=== PATIENT | female | born 1940 | race Caucasian/White ===

== ENCOUNTER 2016-11-26 01:48 | Observation (INO) | payer MEDICARE ==
[~2016-11-26] VITALS: Ht 157.5 cm; Wt 73.5 kg
[~2016-11-26 01:48] MED LIST: ALBU2.5V4 IH; AZIT-21 PO; DESV50TA PO; DOXY-182 PO; FLUO40CA PO; FLUT12AE4 IH; FLX20C; HCT25T PO; HDR10T; HDR10T PO; PNT40TEC PO; PRCD5U PO; PRD20T PO; PROZAC PO; SCR1T1 PO; TMZP15C GT; [UNRECOGNIZED DRUG - OTHER]
[2016-11-26] MEDS ORDERED: RT-ALBUTEROL/IPRATROPIUM 3 ML (DUONEB) VIAL ONE (01:52)
[2016-11-26] MEDS ORDERED: RALO60TA12 (01:58)
[2016-11-26] MEDS ORDERED: NS IV 1000 ML 1,000 ML IV ONE (02:00)
[2016-11-26] MEDS ORDERED: RT-ALBUTEROL/IPRATROPIUM 3 ML (DUONEB) VIAL INH ONE (02:00)
[2016-11-26] MEDS ORDERED: methylPREDNISolone 125 MG (Solu-MEDROL) VIAL IVP ONE (02:00)
--- NOTE | 2016-11-26 02:00 | ED Respiratory ---
General Chief Complaint: Respiratory Problems Stated Complaint: SOB Nursing Triage Note: patient reports coughing x 5 days with SOA Source: patient Exam Limitations: no limitations History of Present Illness Time seen by provider: 01:59 Initial Comments Patient presents to ER by private conveyance with her with a chief complaint 4 days progressively worsening shortness of breath chills but no subjective fever. She is sweaty and has been exposed to her son who has had strep throat several times in the last few months. She has a sore throat no nausea or chest pain. She says she was told the past she has COPD but she's not convinced she does however she does use a nebulized albuterol at home but has not used it in several weeks. She has had regular bowel movements no diarrhea and no rash. She has no history of coronary disease. Allergies and Home Medications Allergies Coded Allergies: Penicillins (Verified Allergy, Unknown, 05/18/07) Home Medications Fluoxetine Hcl 40 Mg Capsule, 1 EACH PO DAILY, (Reported) Hydrochlorothiazide 25 Mg Tablet, 25 MG PO DAILY, (Reported) Raloxifene HCl 60 Mg Tablet, #30 (Reported) Constitutional: see HPI, chills, diaphoresis, No fever, malaise EENTM: hoarseness, throat pain, No ear discharge, No ear pain, No eye pain, No throat swelling, No vision loss Respiratory: cough (nonproductive), No hemoptysis (nonproductive), No short of breath Cardiovascular: No chest pain, No Hx of Intervention, No palpitations, No vascular heart diseas Gastrointestinal: No abdominal pain, No constipation, No diarrhea, No nausea Genitourinary: No discharge, No dysuria : No Musculoskeletal: No back pain, No joint pain Skin: No pruritus, No rash Psychiatric/Neurological: Denies Headache, Denies Numbness Past Cjvpffw-Kkmlse-Rmyxwe Hx Patient Social History Alcohol Use: Denies Use Recreational Drug Use: No Smoking Status: Former Smoker Type Used: Cigarettes Recent Foreign Travel: No Contact w/Someone Who Travel: No Recent Infectious Disease Expo: No Recent Hopitalizations: No Immunizations Up To Date Date of Pneumonia Vaccine: Jan 01, 2011 Date of Influenza Vaccine: Feb 23, 2012 Surgeries HX Surgeries: Yes (Macula repair 2009, HIATAL HERNIA) Respiratory Hx Respiratory Disorders: No Cardiovascular Hx Cardiac Disorders: No Neurological Hx Neurological Disorders: No Reproductive System Hx Reproductive Disorders: No Sexually Transmitted Disease: No Genitourinary Hx Genitourinary Disorders: No Gastrointestinal Hx Gastrointestinal Disorders: Yes (HAS FREQ HEART BURN) Musculoskeletal Hx Musculoskeletal Disorders: No Endocrine Hx Endocrine Disorders: No HEENT HX ENT Disorders: No Integumentary HX Skin/Integumentary Disorder: Yes (TICK FEVER) Blood Transfusions Hx Blood Disorders: No Family Medical History Significant Family History: No Pertinent Family Hx Physical Exam Vital Signs Vital Sign - Last 12Hours 11/26/16 11/26/16 01:53 02:01 Temp 98.3 Pulse 87 Resp 22 B/P (MAP) 158/87 Pulse Ox 96 O2 Delivery Room Air O2 Flow Rate 2.00 Capillary Refill : Less Than 3 Seconds General Appearance: WD/WN, mild distress Eyes: Bilateral Eye EOMI, Bilateral Eye Normal Inspection, Bilateral Eye PERRL HEENT: PERRL/EOMI, normal ENT inspection, TMs normal, pharyngeal erythema Neck: non-tender, full range of motion, supple, normal inspection Respiratory: chest non-tender, no respiratory distress, decreased breath sounds , other (nonproductive cough) Cardiovascular: normal peripheral pulses, regular rate, rhythm, no edema, no murmur Gastrointestinal: normal bowel sounds, non tender, soft Extremities: normal range of motion, normal capillary refill Neurologic/Psychiatric: alert, oriented x 3 (I, satisfactory range) Skin: normal color, warm/dry Focused Exam Lactic Acid Level Laboratory Tests Test 11/26/16 02:00 Lactic Acid Level 1.26 MMOL/L (0.50-2.00) Progress/Results/Core Measures Results/Orders Lab Results Laboratory Tests Test 11/26/16 01:55 11/26/16 02:00 11/26/16 02:07 Range/Units White Blood Count 11.3 H 4.3-11.0 10^3/uL Red Blood Count 4.81 4.35-5.85 10^6/uL Hemoglobin 13.4 11.5-16.0 G/DL Hematocrit 40 35-52 % Mean Corpuscular Volume 83 80-99 FL Mean Corpuscular Hemoglobin 28 25-34 PG Mean Corpuscular Hemoglobin Concent 34 32-36 G/DL Red Cell Distribution Width 16.0 H 10.0-14.5 % Platelet Count 256 130-400 10^3/uL Mean Platelet Volume 10.8 H 7.4-10.4 FL Neutrophils (%) (Auto) 63 42-75 % Lymphocytes (%) (Auto) 24 12-44 % Monocytes (%) (Auto) 12 0-12 % Eosinophils (%) (Auto) 1 0-10 % Basophils (%) (Auto) 0 0-10 % Neutrophils # (Auto) 7.1 1.8-7.8 X 10^3 Lymphocytes # (Auto) 2.7 1.0-4.0 X 10^3 Monocytes # (Auto) 1.3 H 0.0-1.0 X 10^3 Eosinophils # (Auto) 0.1 0.0-0.3 10^3/uL Basophils # (Auto) 0.0 0.0-0.1 10^3/uL Prothrombin Time 14.0 12.2-14.7 SEC INR Comment 1.1 0.8-1.4 Activated Partial Thromboplast Time 28 24-35 SEC D-Dimer 1.50 H 0.00-0.49 UG/ML Sodium Level 139 135-145 MMOL/L Potassium Level 3.4 L 3.6-5.0 MMOL/L Chloride Level 103 98-107 MMOL/L Carbon Dioxide Level 22 21-32 MMOL/L Anion Gap 14 5-14 MMOL/L Blood Urea Nitrogen 32 H 7-18 MG/DL Creatinine 1.20 0.60-1.30 MG/DL Estimat Glomerular Filtration Rate 44 BUN/Creatinine Ratio 27 Glucose Level 135 H 70-105 MG/DL Calcium Level 9.6 8.5-10.1 MG/DL Magnesium Level 1.9 1.8-2.4 MG/DL Total Bilirubin 0.5 0.1-1.0 MG/DL Aspartate Amino Transf (AST/SGOT) 50 H 5-34 U/L Alanine Aminotransferase (ALT/SGPT) 53 0-55 U/L Alkaline Phosphatase 122 40-136 U/L Troponin I < 0.30 <0.30 NG/ML B-Type Natriuretic Peptide 45.1 <100.0 PG/ML Total Protein 6.8 6.4-8.2 GM/DL Albumin 4.0 3.2-4.5 GM/DL Lactic Acid Level 1.26 0.50-2.00 MMOL/L Group A Streptococcus Screen NEGATIVE NEGATIVE My Orders Orders - BRENDA MONSON Albuterol/Ipra Inhalation Soln (Duoneb I (11/26/16 01:52) Cbc With Automated Diff (11/26/16 02:00) Comprehensive Metabolic Panel (11/26/16 02:00) Lactic Acid Analyzer (11/26/16 02:00) Magnesium (11/26/16 02:00) Rapid Strep A Screen (11/26/16 02:00) Troponin I (11/26/16 02:00) Chest Pa/Lat (2 View) (11/26/16 02:00) Albuterol/Ipra Inhalation Soln (Duoneb I (11/26/16 02:00) Saline Lock/Iv-Start (11/26/16 02:00) Ns Iv 1000 Ml (Sodium Chloride 0.9%) (11/26/16 02:00) BNP (11/26/16 02:00) Fibrin Degradation Products (11/26/16 02:00) Ekg Tracing (11/26/16 02:00) O2 (11/26/16 02:00) Saline Lock/Iv-Start (11/26/16 02:00) Sputum Culture (11/26/16 02:00) Monitor-Rhythm Ecg Trace Only (11/26/16 02:00) Svn Sm Volume Nebulizer Rt-Rfs (11/26/16 02:00) Methylprednisolone Sod Succ (Solu-Medrol (11/26/16 02:00) Potassium Chloride (Tablet) (K Dur Table (11/26/16 03:15) Albuterol Pre-Mix Nebs (Rt) (Proventil P (11/26/16 03:12) Albuterol Pre-Mix Nebs (Rt) (Proventil P (11/26/16 03:30) Azithromycin Tablet (Zithromax Tablet) (11/26/16 03:45) Heparin Drip [id number] Unit/500ml (Heparin (11/26/16 03:31) Heparin (Bolus Per Protocol) (Heparin (B (11/26/16 03:45) Protime With Inr (11/26/16 03:31) Partial Thromboplastin Time (11/26/16 03:31) Medications Given in ED Current Medications Medications Dose Ordered Sig/Tootie Route Start Time Stop Time Status Last Admin Dose Admin Albuterol Sulfate 2.5 mg STK-MED ONCE .ROUTE 11/26/16 03:12 11/26/16 03:18 DC 11/26/16 03:20 2.5 MG Albuterol/ Ipratropium 3 ml ONCE ONCE INH 11/26/16 02:00 11/26/16 02:05 DC 11/26/16 02:10 3 ML Heparin Sodium/ Dextrose 500 ml @ 0 mls/hr Q0M ONCE IV 11/26/16 03:31 11/26/16 03:34 DC 11/26/16 03:42 25.9 MLS/HR Methylprednisolone Sodium Succinate 125 mg ONCE ONCE IVP 11/26/16 02:00 11/26/16 02:05 DC 11/26/16 02:23 125 MG Potassium Chloride 20 meq ONCE ONCE PO 11/26/16 03:15 11/26/16 03:16 DC 11/26/16 03:42 20 MEQ Sodium Chloride 1,000 ml @ 0 mls/hr Q0M ONCE IV 11/26/16 02:00 11/26/16 02:05 DC 11/26/16 02:23 0 MLS/HR Vital Signs/I&O Vital Sign - Last 12Hours 11/26/16 11/26/16 11/26/16 11/26/16 01:53 01:53 02:01 03:21 Temp 98.3 Pulse 87 Resp 22 B/P (MAP) 158/87 Pulse Ox 96 96 99 97 O2 Delivery Room Air Nasal Cannula Nasal Cannula O2 Flow Rate 2.00 2.00 Blood Pressure Mean: 110 Progress Note #1: Time: 02:12 Progress Note COPD exacerbation versus pneumonia. Breath sounds are better appreciated after a breathing treatment. Progress Note #2: Time: 03:14 Progress Note Patient is having quite a bit of coughing and her sats are getting into the upper 80s. Put her on O2 2 L and we'll go ahead and plan on putting her in the hospital. Even though she is on a blood thinner presently her d-dimer is elevated and she doesn't have any recent surgeries or trauma that would explain it. Given her GFR 44 at the good be reasonable to get a VQ scan as opposed to a CT angiogram. We'll go ahead and switch her to heparin drip. ECG Initial ECG Impression Date: Nov 26, 2016 Initial ECG Impression Time: 01:59 Initial ECG Rate: 81 Initial ECG Rhythm: Normal Sinus Initial ECG Intervals: Normal Initial ECG Impression: Normal Initial ECG Comparisson: No Previous ECG Available Comment No appreciable ST wave elevation or depression. Diagnostic Imaging Diagonstic Imaging: Xray Plain Films/CT/US/NM/MRI: chest Comments Stable widened mediastinum seen in 2013. No new acute infiltrates or other cardiopulmonary processes noted. Reviewed: Reviewed by Me Departure Communication Time/Spoke to Admitting Phy: 03:[address] Ayers the patient's lab findings, clinical presentation and my desire to have her placed in observation for COPD, mild hypoxia, possible PE and a VQ scan in the morning given her chronic kidney disease and her GFR 40s. She agrees and will see the patient in the morning. Impression Impression: Primary Impression: COPD exacerbation Additional Impressions: Hypoxia Pulmonary embolism Qualified Codes: I26.99 - Other pulmonary embolism without acute cor pulmonale Disposition: ADMITTED INPATIENT (observation) Condition: Stable Decision to Admit Reason: Admit from ER (General) Decision to Admit/Date: Nov 26, 2016 Time/Decision to Admit Time: 03:29 Departure-Patient Inst. Referrals: SOLA AYERS DO (PCP/Family) Primary Care Physician Copy Copies To 1: SOLA AYERS TITUS J Nov 26, 2016 02:00
[2016-11-26 02:09] LABS: BASOPHILS % (AUTO) 0 % (0-10); EOSINOPHILS # (AUTO) 0.1 10^3/uL (0.0-0.3); EOSINOPHILS % (AUTO) 1 % (0-10); LYMPHOCYTES # (AUTO) 2.7 X 10^3 (1.0-4.0); LYMPHOCYTES % (AUTO) 24 % (12-44); MEAN CORPUSCULAR HEMOGLOBIN 28 PG (25-34); MEAN CORPUSCULAR HGB CONC 34 G/DL (32-36); MEAN CORPUSCULAR VOLUME 83 FL (80-99); MEAN PLATELET VOLUME 10.8 FL (7.4-10.4); MONOCYTES # (AUTO) 1.3 X 10^3 (0.0-1.0); MONOCYTES % (AUTO) 12 % (0-12); NEUTROPHILS # (AUTO) 7.1 X 10^3 (1.8-7.8); NEUTROPHILS % (AUTO) 63 % (42-75); PLATELET COUNT 256 10^3/uL (130-400); RED BLOOD COUNT 4.81 10^6/uL (4.35-5.85); WHITE BLOOD COUNT 11.3 10^3/uL (4.3-11.0)
[2016-11-26 02:34] LABS: ALANINE AMINOTRANSFERASE 53 U/L (0-55); ANION GAP 14 MMOL/L (5-14); ASPARTATE AMINO TRANSFERASE 50 U/L (5-34); BILIRUBIN,TOTAL 0.5 MG/DL (0.1-1.0); BLOOD UREA NITROGEN 32 MG/DL (7-18); BUN/CREATININE RATIO 27; CALCIUM 9.6 MG/DL (8.5-10.1); CARBON DIOXIDE 22 MMOL/L (21-32); CHLORIDE 103 MMOL/L (98-107); GFR ESTIMATED 44; GLUCOSE 135 MG/DL (70-105); MAGNESIUM 1.9 MG/DL (1.8-2.4); POTASSIUM 3.4 MMOL/L (3.6-5.0); SODIUM 139 MMOL/L (135-145); TOTAL PROTEIN 6.8 GM/DL (6.4-8.2)
[2016-11-26 02:40] LABS: TROPONIN I < 0.30 NG/ML (<0.30)
[2016-11-26] MEDS ORDERED: RT-ALBUTEROL SULF 2.5 MG/3 ML PRE-MIX VIAL ONE (03:12)
[2016-11-26] MEDS ORDERED: KCL 20 MEQ TAB (K-DUR) PO ONE (03:15)
[2016-11-26] MEDS ORDERED: RT-ALBUTEROL SULF 2.5 MG/3 ML PRE-MIX VIAL IH SCH ×2 (03:30→10:00)
[2016-11-26] MEDS ORDERED: HEParin DRIP 25000 UNIT/500ML 500 ML IV ONE (03:31)
[2016-11-26 03:42] LABS: INR 1.1 (0.8-1.4)
[2016-11-26] MEDS ORDERED: AZITHROMYCIN 250 MG TAB (ZITHROMAX) PO ONE (03:45)
[2016-11-26] MEDS ORDERED: HEParin 1000 UNIT/ML (10ML VIAL) FOR BOLUS IV ONE (03:45)
[2016-11-26 04:46] VITALS: BP 133/75
[2016-11-26 05:33] LABS: BASOPHILS % (AUTO) 0 % (0-10); EOSINOPHILS % (AUTO) 0 % (0-10); LYMPHOCYTES # (AUTO) 0.9 X 10^3 (1.0-4.0); LYMPHOCYTES % (AUTO) 9 % (12-44); MEAN CORPUSCULAR HEMOGLOBIN 28 PG (25-34); MEAN CORPUSCULAR HGB CONC 34 G/DL (32-36); MEAN CORPUSCULAR VOLUME 84 FL (80-99); MEAN PLATELET VOLUME 10.7 FL (7.4-10.4); MONOCYTES # (AUTO) 0.2 X 10^3 (0.0-1.0); MONOCYTES % (AUTO) 2 % (0-12); NEUTROPHILS # (AUTO) 9.1 X 10^3 (1.8-7.8); NEUTROPHILS % (AUTO) 89 % (42-75); PLATELET COUNT 203 10^3/uL (130-400); RED BLOOD COUNT 4.54 10^6/uL (4.35-5.85); RED CELL DISTRIBUTION WIDTH 15.9 % (10.0-14.5); WHITE BLOOD COUNT 10.2 10^3/uL (4.3-11.0)
[2016-11-26 06:00] LABS: ANISOCYTOSIS SLIGHT; BAND NEUTROPHILS 0 %; BASOPHILS % (MANUAL) 0 %; EOSINOPHILS % (MANUAL) 0 %; LYMPHOCYTES % (MANUAL) 6 %; NEUTROPHILS % (MANUAL) 92 %
[2016-11-26 06:26] LABS: ALBUMIN 3.7 GM/DL (3.2-4.5); BILIRUBIN,TOTAL 0.5 MG/DL (0.1-1.0); CALCIUM 9.2 MG/DL (8.5-10.1); CREATININE SERUM 1.03 MG/DL (0.60-1.30); POTASSIUM 3.1 MMOL/L (3.6-5.0); TOTAL PROTEIN 6.3 GM/DL (6.4-8.2)
[2016-11-26] MEDS ORDERED: HEParin DRIP 25000 UNIT/500ML 500 ML IV SCH (06:34)
[2016-11-26] MEDS ORDERED: HEParin 1000 UNIT/ML (10ML VIAL) FOR BOLUS IV SCH (06:45)
[2016-11-26] MEDS ORDERED: fentaNYL INJECTION 100 MCG/2 ML AMP IV PRN (06:45)
[2016-11-26] MEDS ORDERED: ONDANSETRON 4 MG/2 ML (SDV) Z0FRAN IV PRN (06:45)
[2016-11-26] MEDS ORDERED: NS IV 1000 ML 1,000 ML IV SCH (06:45)
[2016-11-26] MEDS ORDERED: CATHETER FLUSH 10 ML SYR IV PRN (06:45)
--- NOTE | 2016-11-26 07:26 | Diagnostic Imaging Report ---
INDICATION: Cough and congestion. COMPARISON: 07/16/2012. FINDINGS: Frontal and lateral views of the chest demonstrate stable cardiac enlargement. The lungs are otherwise clear. There is no pneumothorax, effusion or infiltrate. Osseous structures are stable. IMPRESSION: Cardiac enlargement without pulmonary edema or infiltrate. Dictated by: Dictated on workstation # [id number]
--- NOTE | 2016-11-26 07:48 | Diagnostic Imaging Report ---
INDICATION: Pulmonary embolism. COMPARISON: None. TECHNIQUE: Radiopharmaceutical 40.1 mCi technetium DTPA nebulizer. 5.3 mCi technetium 99m MAA IV. FINDINGS: Ventilation and perfusion images were obtained. There is no perfusion defect that would indicate pulmonary embolism. Ventilation phase is grossly normal. IMPRESSION: Negative lung scan. No pulmonary embolism identified. Dictated by: Dictated on workstation # [id number]
[2016-11-26 08:00] VITALS: BP 123/71
[2016-11-26 08:36] VITALS: BP 133/75
[2016-11-26 12:00] VITALS: BP 148/89
[2016-11-26] MEDS ORDERED: ALBU2.5V4 IH (12:30)
[2016-11-26] MEDS ORDERED: PRD20T PO (12:32)
[2016-11-26] MEDS ORDERED: AZIT250T PO (12:32)
[2016-11-26] MEDS ORDERED: POTA10CA43 PO (12:35)
--- NOTE | 2016-11-26 12:37 | Discharge Inst-Simple/Standard ---
Discharge Inst-Standard Discharge Medications New, Converted or Re-Newed RX: Transmitted to Pharmacy Patient Instructions/Follow Up Plan of Care/Instructions/FU: Fwup in 1 week Activity as Tolerated: Yes Discharge Diet: Low Sodium Diet SOLA MICHELLE DO Nov 26, 2016 12:37
[2016-11-26 13:00] VITALS: BP 122/78
--- NOTE | 2016-11-26 13:06 | Short Stay Summary ---
History of Present Illness History of Present Illness Reason for visit/HPI This is a 75 year old female with a known history of COPD who presented to the emergency room with a 4 days history of cough, wheezing and worsening shortness of air. She was having coughing episodes in the emergency room which would drop her oxygen saturation level into the 80s so she had to be placed on oxygen , given nebulizer treatments and IV solumedrol. Following these treatments, she felt much better but she was found to have an elevated D-Dimer so it was decided to admit her for observation and treatment as well as for V/Q scan. Date of Admission Nov 26, 2016 at 3:40 am Date of Discharge November 26, 2016 Time Seen by Provider: 13:01 Attending Physician Luciana Ayers DO Admitting Physician Luciana Ayers DO Consult Allergies and Home Medications Allergies Coded Allergies: Penicillins (Verified Allergy, Unknown, 05/18/07) Home Medications Albuterol Sulfate 2.5 Mg/3 Ml Vial.neb, 2.5 MG IH RTQ4HR, #50 Prescribed by: LUCIANA AYERS on 11/26/16 1230 Azithromycin 250 Mg Tablet, 250 MG PO UD for 4 Days, #6 TAKE 2 TABLETS TODAY, THEN TAKE 1 TABLET DAILY FOR 4 MORE DAYS Prescribed by: LUCIANA AYERS on 11/26/16 1232 Fluoxetine Hcl 40 Mg Capsule, 1 EACH PO DAILY, (Reported) Potassium Chloride 10 Meq Capsule.er, 10 MEQ PO BID, #60 Prescribed by: LUCIANA AYERS on 11/26/16 1235 Prednisone 20 Mg Tab, 20 MG PO DAILY for 5 Days, #5 Prescribed by: LUCIANA AYERS on 11/26/16 1232 Raloxifene HCl 60 Mg Tablet, #30 (Reported) Past Rybnmca-Ippvxx-Cippqs Hx Patient Social History Marrital Status: Employed/Student: employed Alcohol Use: Occasionally Uses Recreational Drug Use: No Smoking Status: Former Smoker Type Used: Cigarettes Physical Abuse Screen: No Sexual Abuse: No Recent Foreign Travel: No Contact w/other who traveled: No Recent Hopitalizations: No Recent Infectious Disease Expo: No Immunizations Up To Date Date of Pneumonia Vaccine: Jan 01, 2011 Date of Influenza Vaccine: Feb 23, 2012 Seasonal Allergies Seasonal Allergies: No Surgeries HX Surgeries: Yes (Macula repair 2010, HIATAL HERNIA) Respiratory Hx Respiratory Disorders: No Cardiovascular Hx Cardiovascular Disorders: No Neurological Hx Neurological Disorders: No Reproductive System Hx Reproductive Disorders: No Sexually Transmitted Disease: No HIV/AIDS: No Genitourinary Hx Genitourinary Disorders: No Gastrointestinal Hx Gastrointestinal Disorders: Yes (HAS FREQ HEART BURN) Musculoskeletal Hx Musculoskeletal Disorders: No Endocrine Hx Endocrine Disorders: No HEENT HX ENT Disorders: No Psychosocial Behavioral Health Disorders: Anxiety Integumentary HX Skin/Integumentary Disorder: Yes (TICK FEVER) Blood Transfusions Hx Blood Disorders: No Adverse Reaction to a Blood Tr: No Family Medical History Significant Family History: No Pertinent Family Hx Constitutional: weakness EENTM: nose congestion, throat pain Respiratory: cough, short of breath, wheezing Cardiovascular: No no symptoms reported, No see HPI, No chest pain, No edema, No Hx of Intervention, No palpitations, No syncope, No vascular heart diseas, No other Gastrointestinal: No RUQ, No LUQ, No RLQ, No LLQ, No no symptoms reported, No see HPI, No abdominal pain, No constipation, No diarrhea, No dysphagia, No hematemesis, No heartburn, No jaundice, No loss of appetite, No melena, No nausea, No vomiting, No other Genitourinary: No no symptoms reported, No see HPI, No decreased output, No discharge, No dysuria, No frequency, No hematuria, No hesitancy, No incontinence , No nocturia, No pain, No other Musculoskeletal: No no symptoms reported, No see HPI, No back pain, No gout, No joint pain, No joint swelling, No muscle pain, No muscle stiffness, No muscle cramps, No muscle twitching, No muscle weakness, No neck pain, No other Skin: No no symptoms reported, No see HPI, No change in color, No change in hair/nails, No dryness, No hx of skin cancer, No lesions, No lumps, No pruritus , No rash, No other Psychiatric/Neurological: Anxiety Physical Exam Vital Signs Vital Sign - Last 12Hours 11/26/16 11/26/16 11/26/16 01:53 02:01 08:36 Temp 98.3 Pulse 87 Resp 22 B/P (MAP) 158/87 Pulse Ox 96 O2 Delivery Room Air O2 Flow Rate 2.00 FiO2 21 Capillary Refill : Less Than 3 Seconds General Appearance: No Apparent Distress HEENT: Normal ENT Inspection Neck: Supple Respiratory: Lungs Clear Cardiovascular: Regular Rate, Rhythm Gastrointestinal: Non Tender, Soft, Abnormal Bowel Sounds Rectal: Deferred Back: No CVA Tenderness Extremity: Non Tender, No Calf Tenderness, No Pedal Edema Neurologic/Psychiatric: Alert, Oriented x3 Skin: Normal Color, Warm/Dry Lymphatic: No Adenopathy Comments Laboratory Tests 11/26/16 01:55: White Blood Count 11.3H, Red Blood Count 4.81, Hemoglobin 13.4, Hematocrit 40, Mean Corpuscular Volume 83, Mean Corpuscular Hemoglobin 28, Mean Corpuscular Hemoglobin Concent 34, Red Cell Distribution Width 16.0H, Platelet Count 256, Mean Platelet Volume 10.8H, Neutrophils (%) (Auto) 63, Lymphocytes (%) (Auto) 24 , Monocytes (%) (Auto) 12, Eosinophils (%) (Auto) 1, Basophils (%) (Auto) 0, Neutrophils # (Auto) 7.1, Lymphocytes # (Auto) 2.7, Monocytes # (Auto) 1.3H, Eosinophils # (Auto) 0.1, Basophils # (Auto) 0.0, Prothrombin Time 14.0, INR Comment 1.1, Activated Partial Thromboplast Time 28, D-Dimer 1.50H, Sodium Level 139, Potassium Level 3.4L, Chloride Level 103, Carbon Dioxide Level 22, Anion Gap 14, Blood Urea Nitrogen 32H, Creatinine 1.20, Estimat Glomerular Filtration Rate 44, BUN/Creatinine Ratio 27, Glucose Level 135H, Calcium Level 9.6, Magnesium Level 1.9, Total Bilirubin 0.5, Aspartate Amino Transf (AST/SGOT ) 50H, Alanine Aminotransferase (ALT/SGPT) 53, Alkaline Phosphatase 122, Troponin I < 0.30, B-Type Natriuretic Peptide 45.1, Total Protein 6.8, Albumin 4.0 11/26/16 02:00: Lactic Acid Level 1.26 11/26/16 02:07: Group A Streptococcus Screen NEGATIVE 11/26/16 05:20: White Blood Count 10.2, Red Blood Count 4.54, Hemoglobin 12.7, Hematocrit 38, Mean Corpuscular Volume 84, Mean Corpuscular Hemoglobin 28, Mean Corpuscular Hemoglobin Concent 34, Red Cell Distribution Width 15.9H, Platelet Count 203, Mean Platelet Volume 10.7H, Neutrophils (%) (Auto) 89H, Lymphocytes (%) (Auto) 9L, Monocytes (%) (Auto) 2, Eosinophils (%) (Auto) 0, Basophils (%) (Auto) 0, Neutrophils # (Auto) 9.1H, Lymphocytes # (Auto) 0.9L, Monocytes # (Auto) 0.2, Eosinophils # (Auto) 0.0, Basophils # (Auto) 0.0, Sodium Level 139, Potassium Level 3.1L, Chloride Level 105, Carbon Dioxide Level 20L, Anion Gap 14, Blood Urea Nitrogen 29H, Creatinine 1.03, Estimat Glomerular Filtration Rate 52, BUN/ Creatinine Ratio 28, Glucose Level 174H, Calcium Level 9.2, Total Bilirubin 0.5 , Aspartate Amino Transf (AST/SGOT) 50H, Alanine Aminotransferase (ALT/SGPT) 50 , Alkaline Phosphatase 104, Total Protein 6.3L, Albumin 3.7, Neutrophils % ( Manual) 92, Lymphocytes % (Manual) 6, Monocytes % (Manual) 2, Eosinophils % ( Manual) 0, Basophils % (Manual) 0, Band Neutrophils 0, Anisocytosis SLIGHT 11/26/16 07:35: Activated Partial Thromboplast Time > 200*H Clinical Quality Measures DVT/VTE Risk/Contraindication: VTE Present on Admission: Yes Risk Factor Score Per Nursin RFS Level Per Nursing on Admit: 4+=Very High Short Stay Diagnosis Discharge Diagnosis-Short Stay Admission Diagnosis: 1. COPD Exacerbation 2. Hypoxia due to Coughing 3. Elevated D-Dimer 4. Hypokalemia 5. Anxiety Final Discharge Diagnosis: 1. COPD Exacerbation--improving 2. Hypoxia--Resolved 3. Elevated D-Dimer--no PE, V/Q scan negative 4. Hypokalemia 5. Anxiety Conclusion Labs Laboratory Tests 11/26/16 01:55: White Blood Count 11.3H, Red Blood Count 4.81, Hemoglobin 13.4, Hematocrit 40, Mean Corpuscular Volume 83, Mean Corpuscular Hemoglobin 28, Mean Corpuscular Hemoglobin Concent 34, Red Cell Distribution Width 16.0H, Platelet Count 256, Mean Platelet Volume 10.8H, Neutrophils (%) (Auto) 63, Lymphocytes (%) (Auto) 24 , Monocytes (%) (Auto) 12, Eosinophils (%) (Auto) 1, Basophils (%) (Auto) 0, Neutrophils # (Auto) 7.1, Lymphocytes # (Auto) 2.7, Monocytes # (Auto) 1.3H, Eosinophils # (Auto) 0.1, Basophils # (Auto) 0.0, Prothrombin Time 14.0, INR Comment 1.1, Activated Partial Thromboplast Time 28, D-Dimer 1.50H, Sodium Level 139, Potassium Level 3.4L, Chloride Level 103, Carbon Dioxide Level 22, Anion Gap 14, Blood Urea Nitrogen 32H, Creatinine 1.20, Estimat Glomerular Filtration Rate 44, BUN/Creatinine Ratio 27, Glucose Level 135H, Calcium Level 9.6, Magnesium Level 1.9, Total Bilirubin 0.5, Aspartate Amino Transf (AST/SGOT ) 50H, Alanine Aminotransferase (ALT/SGPT) 53, Alkaline Phosphatase 122, Troponin I < 0.30, B-Type Natriuretic Peptide 45.1, Total Protein 6.8, Albumin 4.0 11/26/16 02:00: Lactic Acid Level 1.26 11/26/16 02:07: Group A Streptococcus Screen NEGATIVE 11/26/16 05:20: White Blood Count 10.2, Red Blood Count 4.54, Hemoglobin 12.7, Hematocrit 38, Mean Corpuscular Volume 84, Mean Corpuscular Hemoglobin 28, Mean Corpuscular Hemoglobin Concent 34, Red Cell Distribution Width 15.9H, Platelet Count 203, Mean Platelet Volume 10.7H, Neutrophils (%) (Auto) 89H, Lymphocytes (%) (Auto) 9L, Monocytes (%) (Auto) 2, Eosinophils (%) (Auto) 0, Basophils (%) (Auto) 0, Neutrophils # (Auto) 9.1H, Lymphocytes # (Auto) 0.9L, Monocytes # (Auto) 0.2, Eosinophils # (Auto) 0.0, Basophils # (Auto) 0.0, Sodium Level 139, Potassium Level 3.1L, Chloride Level 105, Carbon Dioxide Level 20L, Anion Gap 14, Blood Urea Nitrogen 29H, Creatinine 1.03, Estimat Glomerular Filtration Rate 52, BUN/ Creatinine Ratio 28, Glucose Level 174H, Calcium Level 9.2, Total Bilirubin 0.5 , Aspartate Amino Transf (AST/SGOT) 50H, Alanine Aminotransferase (ALT/SGPT) 50 , Alkaline Phosphatase 104, Total Protein 6.3L, Albumin 3.7, Neutrophils % ( Manual) 92, Lymphocytes % (Manual) 6, Monocytes % (Manual) 2, Eosinophils % ( Manual) 0, Basophils % (Manual) 0, Band Neutrophils 0, Anisocytosis SLIGHT 11/26/16 07:35: Activated Partial Thromboplast Time > 200*H Conclusion/Plan This is a 75 year old female with a known history of COPD who presented to the emergency room with a 4 day history of cough, wheezing and worsening shortness of air. She was having coughing episodes in the emergency room which would drop her oxygen saturation level into the 80s so she had to be placed on oxygen , given nebulizer treatments and IV solumedrol. Following these treatments, she felt much better but she was found to have an elevated D-Dimer so it was decided to admit her for observation and treatment as well as for V/Q scan. She was admitted to the medical floor and continued on SVNs with albuterol. She was also given zithromax in the emergency room and started on a heparin drip. By the following morning, she was off of oxygen, had no further wheezing and was pacing in her room and the hallways wanting to go home. Her V/Q scan was negative for a PE. On exam, she had good lung aeration with no wheezing. She was afebrile. She was given oral potassium replacement but her potassium level was still low on her morning lab. However, she did not want to wait around for more potassium to be dispensed from the inpatient pharmacy so potassium was sent out to her outpatient pharmacy and she agreed to pick it up on discharge and start it immediately. She will be discharged home on nebulizer treatments with albuterol, zithromax, prednisone and potassium. She is instructed on rest with no working for the rest of the weekend. She will follow up in my office next week and will have her potassium level repeated at that time. LUCIANA AYERS DO Nov 26, 2016 1:05 pm
[2016-11-26] MEDS ORDERED: CATHETER FLUSH 10 ML SYR IV SCH (14:00)
== END 2016-11-26 12:27 | disposition home or self-care (01) ==
LOC: EDUNIT# 01:48 → ER 01:50 → 4TH 03:40 → UNDOADMOB 03:40 → 4TH 04:30 → UNDODISOB 13:00
PROVIDERS: ADMIT Family Medicine; ATTEND Family Medicine
DX: J44.1 Chronic obstructive pulmonary disease with (acute) exacerbation (principal); E87.6 Hypokalemia; R79.1 Abnormal coagulation profile; I51.7 Cardiomegaly; I25.10 Atherosclerotic heart disease of native coronary artery without angina pectoris; F41.9 Anxiety disorder, unspecified; Z79.899 Other long term (current) drug therapy; Z87.891 Personal history of nicotine dependence
CPT/HCPCS: 36415; 71020; 78582; 80053; 83605; 83735; 83880; 84484; 85007; 85025; 85027; 85379; 85610; 85730; 87430; 93005; 93041; 94640; 94760; 96361; 96365; 96375; G0378

== ENCOUNTER 2017-05-27 02:39 | Emergency (ER) | payer MEDICARE ==
[~2017-05-27] VITALS: Ht 157.5 cm; Wt 72.6 kg
[~2017-05-27 02:39] MED LIST changes: +AZIT250T PO; +POTA10CA43 PO; +RALO60TA12
--- OUTSIDE RECORDS SUMMARY | 2017-05-27 02:45 | XMS REPORT | Continuity of Care Document ---
Author Author [facility] Organization [facility] Address Unknown Phone Unavailable Allergies Active Description Code Type Severity Reaction Onset Reported/Identified Relationship to Patient Clinical Status Yes Penicillins [id number] Drug Allergy Unknown N/A 05/18/2007 Medications There is no data. Problems Date Dx Coded Attending Type Code Diagnosis Diagnosed By 09/07/2011 Ot 038.9 SEPTICEMIA NOS 09/07/2011 Ot 066.1 TICK-BORNE FEVER 09/07/2011 Ot 276.8 HYPOPOTASSEMIA 09/07/2011 Ot 287.49 OTHER SECONDARY THROMBOCYTOPENIA 09/07/2011 Ot 288.04 NEUTROPENIA DUE TO INFECTION 09/07/2011 Ot 300.00 ANXIETY STATE NOS 09/07/2011 Ot 305.1 TOBACCO USE DISORDER 09/07/2011 Ot 311 DEPRESSIVE DISORDER NEC 09/07/2011 Ot 401.9 HYPERTENSION NOS 09/07/2011 Ot 530.81 ESOPHAGEAL REFLUX 09/07/2011 Ot 553.3 DIAPHRAGMATIC HERNIA 09/07/2011 Ot 790.4 ELEV TRANSAMINASE/LDH 09/07/2011 Ot 911.4 INSECT BITE TRUNK 09/07/2011 Ot 995.91 SEPSIS 09/07/2011 Ot E000.8 OTHER EXTERNAL CAUSE STATUS 09/07/2011 Ot E906.4 NONVENOM ARTHROPOD BITE 09/07/2011 Ot V03.82 PROPHYLACTIC VACC AGAINST STREPTOCOCCUS 09/07/2011 Ot V15.82 HISTORY OF TOBACCO USE 07/18/2012 Ot 300.00 ANXIETY STATE NOS 07/18/2012 Ot 491.22 OBSTRUCTIVE CHRONIC BRONCHITIS WITH ACUT 07/18/2012 Ot 493.92 ASTHMA, UNSPECIFIED, W (ACUTE) EXACERBAT 07/18/2012 Ot 530.81 ESOPHAGEAL REFLUX 07/18/2012 Ot V15.82 HISTORY OF TOBACCO USE 01/01/2014 CHRISTI FUNES MD Ot 530.11 REFLUX ESOPHAGITIS 01/01/2014 CHRISTI FUNES MD Ot 535.50 UNSP GASTRITIS GASTRODUODENITIS W/O ME 05/21/2014 Ot 824.8 05/21/2014 Ot E000.8 05/21/2014 Ot E928.9 05/21/2014 CHRISTI FUNES MD Ot V72.84 06/17/2014 VIVIANA ZELAYA SOLA S Ot 733.90 11/26/2016 Ot 824.8 FX ANKLE NOS- CLOSED 11/26/2016 Ot E000.8 OTHER EXTERNAL CAUSE STATUS 11/26/2016 Ot E928.9 ACCIDENT NOS 11/26/2016 CHRISTI FUNES MD Ot V72.84 EXAM PRE-OPERATIVE NOS 11/26/2016 PAULNDER DO SOLA S Ot 733.90 BONE CARTILAGE DIS NOS 11/26/2016 PAULNDER DO SOLA S Ot E87.6 HYPOKALEMIA 11/26/2016 PAULNDER DO SOLA S Ot F41.9 ANXIETY DISORDER, UNSPECIFIED 11/26/2016 PAULNDER DO, SOLA S Ot I25.10 ATHSCL HEART DISEASE OF [place] CORONARY 11/26/2016 PAULNDER DO, SOLA S Ot I51.7 CARDIOMEGALY 11/26/2016 PAULNDER DO, SOLA S Ot J44.1 CHRONIC OBSTRUCTIVE PULMONARY DISEASE W 11/26/2016 PAULNDER DO, SOLA S Ot R79.1 ABNORMAL COAGULATION PROFILE 11/26/2016 PAULNDER DO, SOLA S Ot Z79.899 OTHER HALF-WAY (CURRENT) DRUG THERAPY 11/26/2016 PAULNDRICK DO, SOLA S Ot Z87.891 PERSONAL HISTORY OF NICOTINE DEPENDENCE 11/26/2016 PAULNDER DO, SOLA S Ot E87.6 HYPOKALEMIA 11/26/2016 PAULNDER DO, SOLA S Ot F41.9 ANXIETY DISORDER, UNSPECIFIED 11/26/2016 PAULNDER DO, SOLA S Ot I25.10 ATHSCL HEART DISEASE OF [place] CORONARY 11/26/2016 PAULNDER DO, SOLA S Ot I51.7 CARDIOMEGALY 11/26/2016 PAULNDER DO, SOLA S Ot J44.1 CHRONIC OBSTRUCTIVE PULMONARY DISEASE W 11/26/2016 PAULNDER DO, SOLA S Ot R79.1 ABNORMAL COAGULATION PROFILE 11/26/2016 PAULNDER DO, SOLA S Ot Z79.899 OTHER HALF-WAY (CURRENT) DRUG THERAPY 11/26/2016 SOLA MICHELLE DO Ot Z87.891 PERSONAL HISTORY OF NICOTINE DEPENDENCE Procedures There is no data. Results Test Result Range Complete blood count (CBC) with automated white blood cell (WBC) differential - 11/26/16 01:55 Blood leukocytes automated count (number/volume) 11.3 10*3/uL 4.3-11.0 Blood erythrocytes automated count (number/volume) 4.81 10*6/uL 4.35-5.85 Venous blood hemoglobin measurement (mass/volume) 13.4 g/dL 11.5-16.0 Blood hematocrit (volume fraction) 40 % 35-52 Automated erythrocyte mean corpuscular volume 83 [foz_us] 80-99 Automated erythrocyte mean corpuscular hemoglobin (mass per erythrocyte) 28 pg 25-34 Automated erythrocyte mean corpuscular hemoglobin concentration measurement ( mass/volume) 34 g/dL 32-36 Automated erythrocyte distribution width ratio 16.0 % 10.0-14.5 Automated blood platelet count (count/volume) 256 10*3/uL 130-400 Automated blood platelet mean volume measurement 10.8 [foz_us] 7.4-10.4 Automated blood neutrophils/100 leukocytes 63 % 42-75 Automated blood lymphocytes/100 leukocytes 24 % 12-44 Blood monocytes/100 leukocytes 12 % 0-12 Automated blood eosinophils/100 leukocytes 1 % 0-10 Automated blood basophils/100 leukocytes 0 % 0-10 Blood neutrophils automated count (number/volume) 7.1 10*3 1.8-7.8 Blood lymphocytes automated count (number/volume) 2.7 10*3 1.0-4.0 Blood monocytes automated count (number/volume) 1.3 10*3 0.0-1.0 Automated eosinophil count 0.1 10*3/uL 0.0-0.3 Automated blood basophil count (count/volume) 0.0 10*3/uL 0.0-0.1 Fibrin D-dimer FEU measurement in platelet poor plasma (mass/volume) - 01:55 Fibrin D-dimer FEU measurement in platelet poor plasma (mass/volume) 1.50 ug/mL 0.00-0.49 Comprehensive metabolic panel - 11/26/16 01:55 Serum or plasma sodium measurement (moles/volume) 139 mmol/L 135-145 Serum or plasma potassium measurement (moles/volume) 3.4 mmol/L 3.6-5.0 Serum or plasma chloride measurement (moles/volume) 103 mmol/L 98-107 Carbon dioxide 22 mmol/L 21-32 Serum or plasma anion gap determination (moles/volume) 14 mmol/L 5-14 Serum or plasma urea nitrogen measurement (mass/volume) 32 mg/dL 7-18 Serum or plasma creatinine measurement (mass/volume) 1.20 mg/dL 0.60-1.30 Serum or plasma urea nitrogen/creatinine mass ratio 27 NRG Serum or plasma creatinine measurement with calculation of estimated glomerular filtration rate 44 NRG Serum or plasma glucose measurement (mass/volume) 135 mg/dL 70-105 Serum or plasma calcium measurement (mass/volume) 9.6 mg/dL 8.5-10.1 Serum or plasma total bilirubin measurement (mass/volume) 0.5 mg/dL 0.1-1.0 Serum or plasma alkaline phosphatase measurement (enzymatic activity/volume) 122 U/L 40-136 Serum or plasma aspartate aminotransferase measurement (enzymatic activity/ volume) 50 U/L 5-34 Serum or plasma alanine aminotransferase measurement (enzymatic activity/volume ) 53 U/L 0-55 Serum or plasma protein measurement (mass/volume) 6.8 g/dL 6.4-8.2 Serum or plasma albumin measurement (mass/volume) 4.0 g/dL 3.2-4.5 Magnesium - 11/26/16 01:55 Magnesium 1.9 mg/dL 1.8-2.4 Serum or plasma lithium measurement (moles/volume) - 11/26/16 01:55 BNP level 45.1 pg/mL <100.0 Serum or plasma troponin i.cardiac measurement (mass/volume) - 11/26/16 01:55 Serum or plasma troponin i.cardiac measurement (mass/volume) < ng/ mL <0.30 PT panel in platelet poor plasma by coagulation assay - 11/26/16 01:55 Prothrombin time (PT) in platelet poor plasma by coagulation assay 14.0 s 12.2-14.7 INR in platelet poor plasma or blood by coagulation assay 1.1 0.8-1.4 Activated partial thromboplastin time (aPTT) in platelet poor plasma bycoagulation assay - 11/26/16 01:55 Activated partial thromboplastin time (aPTT) in platelet poor plasma bycoagulation assay 28 s 24-35 Blood lactic acid measurement (moles/volume) - 11/26/16 02:00 Blood lactic acid measurement (moles/volume) 1.26 mmol/L 0.50-2.00 Streptococcus pyogenes antigen detection - 11/26/16 02:07 Streptococcus pyogenes antigen detection NEGATIVE NEGATIVE Bacterial throat culture - 11/26/16 02:07 Bacterial throat culture [facility] Complete blood count (CBC) with automated white blood cell (WBC) differential - 11/26/16 05:20 Blood leukocytes automated count (number/volume) 10.2 10*3/uL 4.3-11.0 Blood erythrocytes automated count (number/volume) 4.54 10*6/uL 4.35-5.85 Venous blood hemoglobin measurement (mass/volume) 12.7 g/dL 11.5-16.0 Blood hematocrit (volume fraction) 38 % 35-52 Automated erythrocyte mean corpuscular volume 84 [foz_us] 80-99 Automated erythrocyte mean corpuscular hemoglobin (mass per erythrocyte) 28 pg 25-34 Automated erythrocyte mean corpuscular hemoglobin concentration measurement ( mass/volume) 34 g/dL 32-36 Automated erythrocyte distribution width ratio 15.9 % 10.0-14.5 Automated blood platelet count (count/volume) 203 10*3/uL 130-400 Automated blood platelet mean volume measurement 10.7 [foz_us] 7.4-10.4 Automated blood neutrophils/100 leukocytes 89 % 42-75 Automated blood lymphocytes/100 leukocytes 9 % 12-44 Blood monocytes/100 leukocytes 2 % 0-12 Automated blood eosinophils/100 leukocytes 0 % 0-10 Automated blood basophils/100 leukocytes 0 % 0-10 Blood neutrophils automated count (number/volume) 9.1 10*3 1.8-7.8 Blood lymphocytes automated count (number/volume) 0.9 10*3 1.0-4.0 Blood monocytes automated count (number/volume) 0.2 10*3 0.0-1.0 Automated eosinophil count 0.0 10*3/uL 0.0-0.3 Automated blood basophil count (count/volume) 0.0 10*3/uL 0.0-0.1 Blood manual differential performed detection - 11/26/16 05:20 Blood monocytes/100 leukocytes 2 % NR Manual blood segmented neutrophils/100 leukocytes 92 % NRG Blood band neutrophils/100 leukocytes 0 % NRG Manual blood lymphocytes/100 leukocytes 6 % NRG Manual eosinophils/100 leukocytes in nose 0 % NRG Manual blood basophils/100 leukocytes 0 % NRG Blood anisocytosis detection by light microscopy [facility] Comprehensive metabolic panel - 11/26/16 05:20 Serum or plasma sodium measurement (moles/volume) 139 mmol/L 135-145 Serum or plasma potassium measurement (moles/volume) 3.1 mmol/L 3.6-5.0 Serum or plasma chloride measurement (moles/volume) 105 mmol/L 98-107 Carbon dioxide 20 mmol/L 21-32 Serum or plasma anion gap determination (moles/volume) 14 mmol/L 5-14 Serum or plasma urea nitrogen measurement (mass/volume) 29 mg/dL 7-18 Serum or plasma creatinine measurement (mass/volume) 1.03 mg/dL 0.60-1.30 Serum or plasma urea nitrogen/creatinine mass ratio 28 NRG Serum or plasma creatinine measurement with calculation of estimated glomerular filtration rate 52 NRG Serum or plasma glucose measurement (mass/volume) 174 mg/dL 70-105 Serum or plasma calcium measurement (mass/volume) 9.2 mg/dL 8.5-10.1 Serum or plasma total bilirubin measurement (mass/volume) 0.5 mg/dL 0.1-1.0 Serum or plasma alkaline phosphatase measurement (enzymatic activity/volume) 104 U/L 40-136 Serum or plasma aspartate aminotransferase measurement (enzymatic activity/ volume) 50 U/L 5-34 Serum or plasma alanine aminotransferase measurement (enzymatic activity/volume ) 50 U/L 0-55 Serum or plasma protein measurement (mass/volume) 6.3 g/dL 6.4-8.2 Serum or plasma albumin measurement (mass/volume) 3.7 g/dL 3.2-4.5 Activated partial thromboplastin time (aPTT) in platelet poor plasma bycoagulation assay - 11/26/16 07:35 Activated partial thromboplastin time (aPTT) in platelet poor plasma bycoagulation assay > s 24-35 Encounters ACCT No. Visit Date/Time Discharge Status Pt. Type Provider Facility Loc./Unit Complaint [id number] 11/26/2016 03:40:00 11/26/2016 13:00:00 DIS Inpatient BOSOLA CABRERA DO [facility] 4TH COPD EXACERBATION W/ HYPOXIA,POSS P.E. [id number] 05/22/2014 09:51:00 05/22/2014 23:59:59 CLS Outpatient VIVIANA ZELAYASOLA [facility] RAD OSTEOPENIA [id number] 01/01/2014 09:02:00 01/01/2014 14:50:00 DIS Outpatient CHRISTI FUNES MD [facility] SDC REFLUX [id number] 12/26/2013 07:22:00 12/26/2013 23:59:59 CLS Outpatient CHRISTI FUNES MD [facility] PREOP REFLUX [id number] 06/19/2013 14:23:00 06/19/2013 23:59:59 CLS Outpatient [id number] 06/05/2013 15:31:00 06/05/2013 23:59:59 CLS Outpatient [id number] 05/13/2013 14:45:00 05/13/2013 23:59:59 CLS Outpatient [id number] 09/18/2012 13:26:00 09/18/2012 23:59:59 CLS Outpatient [id number] 08/21/2012 14:31:00 08/21/2012 23:59:59 CLS Outpatient [id number] 07/30/2012 13:42:00 Document Registration [id number] 07/16/2012 13:03:00 Document Registration [id number] 09/04/2011 20:01:00 Document Registration
[2017-05-27] MEDS ORDERED: RT-ALBUTEROL SULF 2.5 MG/3 ML PRE-MIX VIAL INH STA (03:10)
[2017-05-27] MEDS ORDERED: NS IV 500 ML 500 ML IV ONE (03:10)
[2017-05-27] MEDS ORDERED: RT-ALBUTEROL/IPRATROPIUM 3 ML (DUONEB) VIAL INH ONE (03:15)
--- NOTE | 2017-05-27 03:17 | ED Respiratory ---
General Chief Complaint: Respiratory Problems Stated Complaint: NAUSEA,COPD,SOB Nursing Triage Note: PT PRESENTS TO ER WITH COMPLAINT OF SOB, CONGESTION, AND COUGH. STATES SHE HAS BEEN RUNNING A FEVER SINCE MONDAY ON AND OFF. Source: patient, other Exam Limitations: no limitations History of Present Illness Date Seen by Provider: May 27, 2017 Time Seen by Provider: 03:05 Initial Comments Patient presents to ER by private conveyance with a chief complaint for the past for 5 days she's felt like she's had the flu with body aches, nausea and vomiting a couple times without blood in it and some loose soft stools. She is also felt that she's had more difficulty with wheezing and shortness of breath and has been using her albuterol by nebulizer once a day but feels she should probably use it more than that. She is not been on steroids for her COPD for the past 3 months nor she been on antibiotics for the past 3 months. She feels short of breath but no chest pain, abdominal pain or swelling in her hands or feet. Allergies and Home Medications Allergies Coded Allergies: Penicillins (Verified Allergy, Unknown, 05/18/07) Home Medications Albuterol Sulfate 2.5 Mg/3 Ml Vial.neb, 2.5 MG IH RTQ4HR, #50 Prescribed by: SOLA MICHELLE on 11/26/16 1230 Azithromycin 250 Mg Tablet, 250 MG PO UD for 4 Days, #6 TAKE 2 TABLETS TODAY, THEN TAKE 1 TABLET DAILY FOR 4 MORE DAYS Prescribed by: SOLA MICHELLE on 11/26/16 1232 Fluoxetine Hcl 40 Mg Capsule, 1 EACH PO DAILY, (Reported) Potassium Chloride 10 Meq Capsule.er, 10 MEQ PO BID, #60 Prescribed by: SOLA MICHELLE on 11/26/16 1235 Prednisone 20 Mg Tab, 20 MG PO DAILY for 5 Days, #5 Prescribed by: SOLA MICHELLE on 11/26/16 1232 Raloxifene HCl 60 Mg Tablet, #30 (Reported) Constitutional: chills, diaphoresis, fever, malaise EENTM: No ear discharge, No hearing loss, No ear pain Respiratory: cough, No hemoptysis, No phlegm, short of breath, wheezing Cardiovascular: No chest pain, No edema, No palpitations Gastrointestinal: No abdominal pain, No constipation, diarrhea, nausea Genitourinary: No discharge, No dysuria Past Pyoaifp-Ytlugi-Jtkzlb Hx Patient Social History Alcohol Use: Denies Use Recreational Drug Use: No Smoking Status: Former Smoker Type Used: Cigarettes Former Smoker, Quit: Jan 02, 2001 Recent Foreign Travel: No Contact w/Someone Who Travel: No Recent Infectious Disease Expo: No Recent Hopitalizations: No Physical Abuse: No Sexual Abuse: No Immunizations Up To Date Date of Pneumonia Vaccine: Jan 01, 2011 Date of Influenza Vaccine: Feb 23, 2012 Seasonal Allergies Seasonal Allergies: No Surgeries History of Surgeries: Yes (Macula repair 2009, HIATAL HERNIA) Respiratory History of Respiratory Disorde: Yes Respiratory Disorders: COPD Currently Using CPAP: No Currently Using BIPAP: No Cardiovascular History of Cardiac Disorders: No Neurological History of Neurological Disord: No Reproductive System Hx Reproductive Disorders: No Sexually Transmitted Disease: No HIV/AIDS: No Genitourinary History of Genitourinary Disor: No Gastrointestinal History of Gastrointestinal Di: Yes (HAS FREQ HEART BURN) Musculoskeletal History of Musculoskeletal Dis: No Endocrine History of Endocrine Disorders: No HEENT History of HEENT Disorders: No Cancer History of Cancer: No Psychosocial History of Psychiatric Problem: Yes Behavioral Health Disorders: Anxiety Suicide Risk Score: 0 Integumentary History of Skin or Integumenta: Yes (TICK FEVER) Blood Transfusions History of Blood Disorders: No Adverse Reaction to a Blood Tr: No Family Medical History Significant Family History: No Pertinent Family Hx Physical Exam Vital Signs Vital Sign - Last 12Hours 05/27/17 05/27/17 02:52 03:43 Temp 99.0 Pulse 78 Resp 17 B/P (MAP) 153/85 (107) Pulse Ox 98 O2 Delivery Room Air Capillary Refill : Less Than 3 Seconds General Appearance: WD/WN, mild distress Eyes: Bilateral Eye Normal Inspection, Bilateral Eye PERRL, Bilateral Eye EOMI HEENT: PERRL/EOMI, normal ENT inspection, pharynx normal (mucosa is mildly dry) Neck: supple, normal inspection Respiratory: chest non-tender, no accessory muscle use, decreased breath sounds , wheezing, expiration Cardiovascular: normal peripheral pulses, regular rate, rhythm, no edema Gastrointestinal: normal bowel sounds, non tender, soft Neurologic/Psychiatric: alert, oriented x 3 Progress/Results/Core Measures Suspected Sepsis Recent Fever Within 48 Hours: No Infection Criteria Present: None New/Unexplained Altered Menta: No Sepsis Screen: No Definite Risk Sepsis Diagnosis: SIRS Temperature:99.0 Pulse: 78 Respiratory Rate: 17 Laboratory Tests 05/27/17 03:53: White Blood Count 5.0 Blood Pressure 153 /85 Mean: 107 Laboratory Tests 05/27/17 03:53: Creatinine 0.74, Platelet Count 133, Total Bilirubin 0.3 Results/Orders Lab Results Laboratory Tests Test 05/27/17 03:53 Range/Units White Blood Count 5.0 4.3-11.0 10^3/uL Red Blood Count 4.30 L 4.35-5.85 10^6/uL Hemoglobin 12.3 11.5-16.0 G/DL Hematocrit 36 35-52 % Mean Corpuscular Volume 83 80-99 FL Mean Corpuscular Hemoglobin 29 25-34 PG Mean Corpuscular Hemoglobin Concent 35 32-36 G/DL Red Cell Distribution Width 16.0 H 10.0-14.5 % Platelet Count 133 130-400 10^3/uL Mean Platelet Volume 10.4 7.4-10.4 FL Neutrophils (%) (Auto) 58 42-75 % Lymphocytes (%) (Auto) 29 12-44 % Monocytes (%) (Auto) 11 0-12 % Eosinophils (%) (Auto) 2 0-10 % Basophils (%) (Auto) 0 0-10 % Neutrophils # (Auto) 2.9 1.8-7.8 X 10^3 Lymphocytes # (Auto) 1.4 1.0-4.0 X 10^3 Monocytes # (Auto) 0.6 0.0-1.0 X 10^3 Eosinophils # (Auto) 0.1 0.0-0.3 10^3/uL Basophils # (Auto) 0.0 0.0-0.1 10^3/uL Sodium Level 143 135-145 MMOL/L Potassium Level 2.9 L 3.6-5.0 MMOL/L Chloride Level 109 H 98-107 MMOL/L Carbon Dioxide Level 21 21-32 MMOL/L Anion Gap 13 5-14 MMOL/L Blood Urea Nitrogen 18 7-18 MG/DL Creatinine 0.74 0.60-1.30 MG/DL Estimat Glomerular Filtration Rate > 60 BUN/Creatinine Ratio 24 Glucose Level 105 70-105 MG/DL Calcium Level 8.4 L 8.5-10.1 MG/DL Magnesium Level 1.7 L 1.8-2.4 MG/DL Total Bilirubin 0.3 0.1-1.0 MG/DL Aspartate Amino Transf (AST/SGOT) 25 5-34 U/L Alanine Aminotransferase (ALT/SGPT) 23 0-55 U/L Alkaline Phosphatase 89 40-136 U/L C-Reactive Protein High Sensitivity 0.27 0.00-0.50 MG/DL Total Protein 5.7 L 6.4-8.2 GM/DL Albumin 3.3 3.2-4.5 GM/DL Micro Results Microbiology 05/27/17 Influenza Types A,B Antigen (LISA) - Final, Complete My Orders Orders - BRENDA MONSON Cbc With Automated Diff (05/27/17 03:10) Comprehensive Metabolic Panel (05/27/17 03:10) Hs C Reactive Protein (05/27/17 03:10) Magnesium (05/27/17 03:10) Influenza A And B Antigens (05/27/17 03:10) Chest Pa/Lat (2 View) (05/27/17 03:10) Albuterol Pre-Mix Nebs (Rt) (Proventil (05/27/17 03:10) Albuterol/Ipra Inhalation Soln (Duoneb I (05/27/17 03:15) Saline Lock/Iv-Start (05/27/17 03:10) Ns Iv 500 Ml (Sodium Chloride 0.9%) (05/27/17 03:10) Svn Sm Volume Nebulizer Rt-Rfs (05/27/17 03:10) Potassium Chloride (Tablet) (K Dur Table (05/27/17 04:45) Magnesium Oxide Tablet (Mag Ox Tablet) (05/27/17 04:45) Rx-Oseltamivir Caps (Rx-Tamiflu Caps) (05/27/17 04:40) Acetaminophen Tablet (Tylenol Tablet) (05/27/17 04:45) Prednisone Tablet (Deltasone Tablet) (05/27/17 04:45) Medications Given in ED Current Medications Medications Dose Ordered Sig/Tootie Route Start Time Stop Time Status Last Admin Dose Admin Albuterol/ Ipratropium 3 ml ONCE ONCE INH 05/27/17 03:15 05/27/17 03:16 DC 05/27/17 03:40 3 ML Sodium Chloride 500 ml @ 0 mls/hr Q0M ONCE IV 05/27/17 03:10 05/27/17 03:13 DC 05/27/17 04:01 500 MLS/HR Vital Signs/I&O Vital Sign - Last 12Hours 05/27/17 05/27/17 02:52 03:43 Temp 99.0 Pulse 78 Resp 17 B/P (MAP) 153/85 (107) Pulse Ox 98 O2 Delivery Room Air Room Air Capillary Refill : Less Than 3 Seconds Blood Pressure Mean: 107 Progress Note #1: Time: 03:14 Progress Note We will start some DuoNeb and albuterol and get a flu swab as well as a chest x- ray and some basic labs thinking about pneumonia versus COPD exacerbation versus influenza. Progress Note #2: Time: 04:42 Progress Note Discussed the findings of influenza and COPD exacerbation the patient would like to try outpatient therapy. We'll start her on Tamiflu steroids and have her do her albuterol treatments ohbwyv-niw-[id number] and follow-up for her low potassium and magnesium with Dr. Michelle early next week. Patient is in agreement with this and she says she will come back if she is not getting better. Diagnostic Imaging Diagonstic Imaging: Xray Plain Films/CT/US/NM/MRI: chest Comments No acute cardiopulmonary process noted. Reviewed: Reviewed by Me Departure Impression Impression: Primary Impression: Influenza Additional Impression: COPD exacerbation Disposition: 01 HOME, SELF-CARE Condition: Stable Departure-Patient Inst. Decision time for Depature: 04:42 Referrals: SOLA MICHELLE DO (PCP/Family) Primary Care Physician Patient Instructions: Flu, Adult (DC) Add. Discharge Instructions: Use your albuterol treatments every 4 hours or every 6 hours [id number] and you can use it every 2 hours feeling short of breath or wheezy. Start taking the potassium one capsule twice a day and the magnesium one capsule twice a day and follow-up with your primary care physician early next week Monday or Monday to have her labs redrawn. If you're having chest pain, increasing shortness of breath or other worrisome symptoms return to the ER. If you have fevers or body aches you can take Tylenol 1000 mg every 8 hours or ibuprofen 800 mg every 8 hours. Start taking the Tamiflu one capsule twice a day as well until completion. Humidifiers and vapor rubs will also be helpful. All discharge instructions reviewed with patient and/or family. Voiced understanding. Copy Copies To 1: SOLA MICHELLE TITUS J May 27, 2017 03:17
[2017-05-27 04:07] LABS: BASOPHILS % (AUTO) 0 % (0-10); EOSINOPHILS # (AUTO) 0.1 10^3/uL (0.0-0.3); EOSINOPHILS % (AUTO) 2 % (0-10); HEMATOCRIT 36 % (35-52); HEMOGLOBIN 12.3 G/DL (11.5-16.0); LYMPHOCYTES # (AUTO) 1.4 X 10^3 (1.0-4.0); LYMPHOCYTES % (AUTO) 29 % (12-44); MEAN CORPUSCULAR HEMOGLOBIN 29 PG (25-34); MEAN CORPUSCULAR HGB CONC 35 G/DL (32-36); MEAN CORPUSCULAR VOLUME 83 FL (80-99); MEAN PLATELET VOLUME 10.4 FL (7.4-10.4); MONOCYTES # (AUTO) 0.6 X 10^3 (0.0-1.0); MONOCYTES % (AUTO) 11 % (0-12); NEUTROPHILS # (AUTO) 2.9 X 10^3 (1.8-7.8); NEUTROPHILS % (AUTO) 58 % (42-75); PLATELET COUNT 133 10^3/uL (130-400)
[2017-05-27 04:33] LABS: ALANINE AMINOTRANSFERASE 23 U/L (0-55); ALBUMIN 3.3 GM/DL (3.2-4.5); ALKALINE PHOSPHATASE 89 U/L (40-136); BILIRUBIN,TOTAL 0.3 MG/DL (0.1-1.0); BUN/CREATININE RATIO 24; CALCIUM 8.4 MG/DL (8.5-10.1); CARBON DIOXIDE 21 MMOL/L (21-32); CHLORIDE 109 MMOL/L (98-107); CREATININE SERUM 0.74 MG/DL (0.60-1.30); GFR ESTIMATED > 60; GLUCOSE 105 MG/DL (70-105); MAGNESIUM 1.7 MG/DL (1.8-2.4); POTASSIUM 2.9 MMOL/L (3.6-5.0); SODIUM 143 MMOL/L (135-145); TOTAL PROTEIN 5.7 GM/DL (6.4-8.2)
[2017-05-27] MEDS ORDERED: RX-OSELTAMIVIR 75 MG (TAMIFLU) BOX OF 10 PO STA (04:40)
[2017-05-27] MEDS ORDERED: predniSONE 20 MG TAB PO ONE (04:45)
[2017-05-27] MEDS ORDERED: KCL 20 MEQ TAB (K-DUR) PO ONE (04:45)
[2017-05-27] MEDS ORDERED: MAGNESIUM OXIDE (MAG-OX)400 MG TAB PO ONE (04:45)
[2017-05-27] MEDS ORDERED: ACETAMINOPHEN 500 MG TAB (TYLENOL) PO ONE (04:45)
[2017-05-27 05:07] VITALS: BP 144/80
--- NOTE | 2017-05-27 07:16 | Diagnostic Imaging Report ---
EXAMINATION: PA and lateral chest at 0416 AM INDICATION: Cough and congestion The borderline cardiomegaly seen on the prior exam of 11/26/2016 is again evident and no different. The coarse perihilar markings seen on the prior study are also again visualized and unchanged. The lungs are clear. There is no sign of failure, pneumonia or of a pleural effusion to suggest an acute abnormality. The mediastinum is not widened. The osseous structures are intact. IMPRESSION: There is no evidence for an acute cardiopulmonary abnormality. When compared to the prior exam, there has been no significant change. Dictated by: Dictated on workstation # [id number]
== END 2017-05-27 05:07 | disposition home or self-care (01) ==
LOC: EDUNIT# 02:39 → ER 02:41
DX: J11.1 Influenza due to unidentified influenza virus with other respiratory manifestations (principal); J44.1 Chronic obstructive pulmonary disease with (acute) exacerbation; F41.9 Anxiety disorder, unspecified; Z88.0 Allergy status to penicillin; Z79.52 Long term (current) use of systemic steroids; Z87.891 Personal history of nicotine dependence
CPT/HCPCS: 36415; 71046; 80053; 83735; 85025; 86141; 87804; 94640; 96360

== ENCOUNTER → 2018-02-14 | Outpatient (CLI) | payer MEDICARE ==
--- NOTE | 2018-02-14 17:40 | Diagnostic Imaging Report ---
CLINICAL INDICATION: Patient states toes folded under her yesterday while walking. Patient has pain in heads of metatarsals. EXAM: X-ray of the right foot, three views. COMPARISON: X-ray of the right ankle dated 07/25/2012. FINDINGS: There is osteopenia. There is a small calcification seen dorsal to the talar head of unknown age. Otherwise, there is no acute fracture or dislocation. There is spurring of the dorsal midfoot and base of the fifth metatarsal bone. There is degenerative spurring of the first MTP joint. IMPRESSION: 1: There is a small calcification seen dorsal to the talar head, seen on lateral view, which is of unknown age. Clinical correlation for pain and tenderness in this region is suggested to exclude a bony injury in this region. 2: Otherwise, there is no acute fracture or dislocation. 3: Degenerative disease of the right foot. 4: Osteopenia. Dictated by: Dictated on workstation # [id number]
== END ==
LOC: RAD 12:21
PROVIDERS: ATTEND Family Medicine
DX: M19.071 Primary osteoarthritis, right ankle and foot (principal); M85.88 Other specified disorders of bone density and structure, other site; W19.XXXA Unspecified fall, initial encounter
CPT/HCPCS: 73630

== ENCOUNTER 2018-05-04 14:52 | Emergency (ER) | payer MEDICARE ==
[~2018-05-04] VITALS: Ht 157.5 cm; Wt 74.8 kg
--- OUTSIDE RECORDS SUMMARY | 2018-05-04 14:57 | XMS REPORT | Continuity of Care Document ---
Author Author [facility] Organization [facility] Address Unknown Phone Unavailable Allergies Active Description Code Type Severity Reaction Onset Reported/Identified Relationship to Patient Clinical Status Yes Penicillins [id number] Drug Allergy Unknown N/A 05/18/2007 Medications There [...] S Ot I25.10 ATHSCL HEART DISEASE OF [place] CORONARY 11/26/2016 PAULNDER DO, SOLA S Ot I51.7 CARDIOMEGALY 11/26/2016 PAULNDER DO, SOLA S Ot J44.1 CHRONIC OBSTRUCTIVE PULMONARY DISEASE W 11/26/2016 PAULNDER DO, SOLA S Ot R79.1 ABNORMAL COAGULATION PROFILE 11/26/2016 PAULNDER DO, SOLA S Ot Z79.899 OTHER CARE HOME (CURRENT) DRUG THERAPY 11/26/2016 PAULNDRICK DO, SOLA S Ot Z87.891 PERSONAL HISTORY OF NICOTINE DEPENDENCE 11/26/2016 PAULNDER DO, SOLA S Ot E87.6 HYPOKALEMIA 11/26/2016 PAULNDER DO, SOLA S Ot F41.9 ANXIETY DISORDER, UNSPECIFIED 11/26/2016 PAULNDER DO, SOLA S Ot I25.10 ATHSCL HEART DISEASE OF [place] CORONARY 11/26/2016 PAULNDER DO, SOLA S Ot I51.7 CARDIOMEGALY 11/26/2016 PAULNDER DO, SOLA S Ot J44.1 CHRONIC OBSTRUCTIVE PULMONARY DISEASE W 11/26/2016 PAULNDER DO, SOLA S Ot R79.1 ABNORMAL COAGULATION PROFILE 11/26/2016 PAULNDER DO, SOLA S Ot Z79.899 OTHER CARE HOME (CURRENT) DRUG THERAPY 11/26/2016 SOLA AYERS DO S Ot Z87.891 PERSONAL HISTORY OF NICOTINE DEPENDENCE 05/27/2017 BRENDA MONSON MD J Ot F41.9 ANXIETY DISORDER, UNSPECIFIED 05/27/2017 BRENDA MONSON MD J Ot J11.1 FLU DUE TO UNIDENTIFIED INFLUENZA VIRUS 05/27/2017 BRENDA MONSON MD J Ot J44.1 CHRONIC OBSTRUCTIVE PULMONARY DISEASE W 05/27/2017 BRENDA MONSON MD J Ot R11.0 NAUSEA 05/27/2017 BRENDA MONSON MD J Ot Z79.52 CARE HOME (CURRENT) USE OF SYSTEMIC STER 05/27/2017 BRENDA MONSON MD J Ot Z87.891 PERSONAL HISTORY OF NICOTINE DEPENDENCE 05/27/2017 BRENDA MONSON MD J Ot Z88.0 ALLERGY STATUS TO PENICILLIN 05/29/2017 BRENDA MONSON MD J Ot F41.9 ANXIETY DISORDER, UNSPECIFIED 05/29/2017 BRENDA MONSON MD J Ot J11.1 FLU DUE TO UNIDENTIFIED INFLUENZA VIRUS 05/29/2017 BRENDA MONSON MD J Ot J44.1 CHRONIC OBSTRUCTIVE PULMONARY DISEASE W 05/29/2017 BRENDA MONSON MD J Ot R11.0 NAUSEA 05/29/2017 BRENDA MONSON MD Ot Z79.52 CARE HOME (CURRENT) USE OF SYSTEMIC STER 05/29/2017 BRENDA MONSON MD J Ot Z87.891 PERSONAL HISTORY OF NICOTINE DEPENDENCE 05/29/2017 BRENDA MONSON MD J Ot Z88.0 ALLERGY STATUS TO PENICILLIN 05/30/2017 BRENDA MONSON MD J Ot F41.9 ANXIETY DISORDER, UNSPECIFIED 05/30/2017 ANIBAL MONSON MDUS J Ot J11.1 FLU DUE TO UNIDENTIFIED INFLUENZA VIRUS 05/30/2017 BRENDA MONSON MD J Ot J44.1 CHRONIC OBSTRUCTIVE PULMONARY DISEASE W 05/30/2017 BRENDA MONSON MD J Ot R11.0 NAUSEA 05/30/2017 BRENDA MONSON MD J Ot Z79.52 CARE HOME (CURRENT) USE OF SYSTEMIC STER 05/30/2017 BRENDA MONSON MD J Ot Z87.891 PERSONAL HISTORY OF NICOTINE DEPENDENCE 05/30/2017 BRENDA MONSON MD J Ot Z88.0 ALLERGY STATUS TO PENICILLIN 02/14/2018 MARIN WOOD, CHRISTI Ot V72.84 EXAM PRE-OPERATIVE NOS 02/14/2018 SOLA AYERS DO Ot 733.90 BONE CARTILAGE DIS NOS 02/19/2018 SOLA AYERS DO Ot M19.071 PRIMARY OSTEOARTHRITIS, RIGHT ANKLE AND 02/19/2018 SOLA AYERS DO Ot M85.88 OTH DISRD OF BONE DENSITY AND STRUCTURE, 02/19/2018 SOLA AYERS DO Ot W19.XXXA UNSPECIFIED FALL, INITIAL ENCOUNTER Procedures There is no data. Results Test [...] culture - 11/26/16 02:07 Bacterial throat culture NBS NRG Complete blood count (CBC) with automated white [...] 11/26/16 05:20 Blood monocytes/100 leukocytes 2 % NRG Manual blood segmented neutrophils/100 leukocytes 92 % NRG Blood band neutrophils/100 leukocytes 0 % NRG Manual blood lymphocytes/100 leukocytes 6 % NRG Manual eosinophils/100 leukocytes in nose 0 % NRG Manual blood basophils/100 leukocytes 0 % NRG Blood anisocytosis detection by light microscopy [facility] Comprehensive metabolic panel - 11/26/16 05:20 Serum [...] poor plasma bycoagulation assay > s 24-35 Influenza virus A and B antigen detection - 05/27/17 02:50 CALL POSITIVES (F1 HELP) CALLED TO [facility] 05/27/17 0426 BSD NRG FLU RESULT POSITIVE FOR INFLUENZA B ANTIGEN, NEG FOR A ANTIGEN, BY IA NRG Complete blood count (CBC) with automated white blood cell (WBC) differential - 05/27/17 03:53 Blood leukocytes automated count (number/volume) 5.0 10*3/uL 4.3-11.0 Blood erythrocytes automated count (number/volume) 4.30 10*6/uL 4.35-5.85 Venous blood hemoglobin measurement (mass/volume) 12.3 g/dL 11.5-16.0 Blood hematocrit (volume fraction) 36 % 35-52 Automated erythrocyte mean corpuscular volume 83 [foz_us] 80-99 Automated erythrocyte mean corpuscular hemoglobin (mass per erythrocyte) 29 pg 25-34 Automated erythrocyte mean corpuscular hemoglobin concentration measurement ( mass/volume) 35 g/dL 32-36 Automated erythrocyte distribution width ratio 16.0 % 10.0-14.5 Automated blood platelet count (count/volume) 133 10*3/uL 130-400 Automated blood platelet mean volume measurement 10.4 [foz_us] 7.4-10.4 Automated blood neutrophils/100 leukocytes 58 % 42-75 Automated blood lymphocytes/100 leukocytes 29 % 12-44 Blood monocytes/100 leukocytes 11 % 0-12 Automated blood eosinophils/100 leukocytes 2 % 0-10 Automated blood basophils/100 leukocytes 0 % 0-10 Blood neutrophils automated count (number/volume) 2.9 10*3 1.8-7.8 Blood lymphocytes automated count (number/volume) 1.4 10*3 1.0-4.0 Blood monocytes automated count (number/volume) 0.6 10*3 0.0-1.0 Automated eosinophil count 0.1 10*3/uL 0.0-0.3 Automated blood basophil count (count/volume) 0.0 10*3/uL 0.0-0.1 Comprehensive metabolic panel - 05/27/17 03:53 Serum or plasma sodium measurement (moles/volume) 143 mmol/L 135-145 Serum or plasma potassium measurement (moles/volume) 2.9 mmol/L 3.6-5.0 Serum or plasma chloride measurement (moles/volume) 109 mmol/L 98-107 Carbon dioxide 21 mmol/L 21-32 Serum or plasma anion gap determination (moles/volume) 13 mmol/L 5-14 Serum or plasma urea nitrogen measurement (mass/volume) 18 mg/dL 7-18 Serum or plasma creatinine measurement (mass/volume) 0.74 mg/dL 0.60-1.30 Serum or plasma urea nitrogen/creatinine mass ratio 24 NRG Serum or plasma creatinine measurement with calculation of estimated glomerular filtration rate > NRG Serum or plasma glucose measurement (mass/volume) 105 mg/dL 70-105 Serum or plasma calcium measurement (mass/volume) 8.4 mg/dL 8.5-10.1 Serum or plasma total bilirubin measurement (mass/volume) 0.3 mg/dL 0.1-1.0 Serum or plasma alkaline phosphatase measurement (enzymatic activity/volume) 89 U/L 40-136 Serum or plasma aspartate aminotransferase measurement (enzymatic activity/ volume) 25 U/L 5-34 Serum or plasma alanine aminotransferase measurement (enzymatic activity/volume ) 23 U/L 0-55 Serum or plasma protein measurement (mass/volume) 5.7 g/dL 6.4-8.2 Serum or plasma albumin measurement (mass/volume) 3.3 g/dL 3.2-4.5 Magnesium - 05/27/17 03:53 Magnesium 1.7 mg/dL 1.8-2.4 Serum or plasma C reactive protein measurement (mass/volume) - 05/27/17 03:53 Serum or plasma C reactive protein measurement (mass/volume) 0.27 mg /dL 0.00-0.50 Encounters ACCT No. Visit Date/Time Discharge Status Pt. Type Provider Facility Loc./Unit Complaint [id number] 02/14/2018 12:21:00 02/14/2018 23:59:59 CLS Outpatient SOLA AYERS DO [facility] RAD RIGHT FOOT PAIN, FALL [id number] 05/27/2017 02:41:00 05/27/2017 05:07:00 DIS Emergency BRENDA MONSON MD [facility] ER NAUSEA,COPD,SOB [id number] 11/26/2016 03:40:00 11/26/2016 13:00:00 DIS Inpatient SOLA AYERS DO [facility] 4TH COPD EXACERBATION W/ HYPOXIA,POSS P.E. [id number] 05/22/2014 09:51:00 05/22/2014 23:59:59 CLS Outpatient SOLA AYERS DO [facility] RAD OSTEOPENIA [id number] 01/01/2014 09:02:00 01/01/2014 14:50:00 DIS Outpatient CHRISTI FUNES MD [facility] SDC REFLUX [id number] 12/26/2013 07:22:00 12/26/2013 23:59:59 CLS Outpatient CHRISTI FUNES MD [facility] PREOP REFLUX [id number] 06/19/2013 14:23:00 06/19/2013 23:59:59 CLS Outpatient [id number] 06/05/2013 15:31:00 06/05/2013 23:59:59 CLS Outpatient [id number] 05/13/2013 14:45:00 05/13/2013 23:59:59 CLS Outpatient [id number] 09/18/2012 13:26:00 09/18/2012 23:59:59 CLS Outpatient [id number] 08/21/2012 14:31:00 08/21/2012 23:59:59 CLS Outpatient [id number] 07/30/2012 13:42:00 Document Registration [id number] 07/16/2012 13:03:00 Document Registration [id number] 09/04/2011 20:01:00 Document Registration 12/27/17 03/29/2018 23:35:18 03/29/2018 23:59:59 CLS Outpatient Sola Ayers [id number] 05/31/2014 07:25:07 ACT Document Registration
[2018-05-04] MEDS ORDERED: RT-ALBUTEROL/IPRATROPIUM 3 ML (DUONEB) VIAL INH ONE (15:15)
--- NOTE | 2018-05-04 15:18 | ED General ---
General Stated Complaint: COUGH;STIFFNESS IN BODY Source of Information: Patient Exam Limitations: No Limitations History of Present Illness Date Seen by Provider: May 04, 2018 Time Seen by Provider: 15:16 Initial Comments To ER with reports of a nonproductive cough without fevers for 2-3 days. She also reports facial itching for "a long time" that she takes an antihistamine medication for at night. She states that she coughs to the point that she nearly passes out. She does have COPD. She also reports unusual sensations described as "the mother board going off". She attempts to clarify this by stating that it feels as though certain parts of her body are normal and other parts are not normal. She stated that she felt this way once before when she had "extreme stress" Timing/Duration: 1-2 Days Severity: Moderate Associated Systoms: Cough Allergies and Home Medications Allergies Coded Allergies: Penicillins (Verified Allergy, Unknown, 05/18/07) Home Medications Albuterol Sulfate 2.5 Mg/3 Ml Vial.neb, 2.5 MG IH RTQ4HR Prescribed by: SOLA MICHELLE on 11/26/16 1230 Azithromycin 250 Mg Tablet, 250 MG PO UD TAKE 2 TABLETS TODAY, THEN TAKE 1 TABLET DAILY FOR 4 MORE DAYS Prescribed by: SOLA MICHELLE on 11/26/16 1232 Cefuroxime Axetil 250 Mg Tablet, 250 MG PO BID Prescribed by: FARIHA VELASQUEZ on 05/04/18 1637 Fluoxetine Hcl 40 Mg Capsule, 1 EACH PO DAILY, (Reported) Potassium Chloride 10 Meq Capsule.er, 10 MEQ PO BID Prescribed by: SOLA MICHELLE on 11/26/16 1235 Prednisone 20 Mg Tab, 20 MG PO DAILY Prescribed by: SOLA MICHELLE on 11/26/16 1232 Prednisone 20 Mg Tab, 40 MG PO DAILY Prescribed by: FARIHA VELASQUEZ on 05/04/18 1638 Patient Home Medication List Home Medication List Reviewed: Yes Review of Systems Review of Systems Constitutional: see HPI EENTM: see HPI Respiratory: see HPI, cough Cardiovascular: see HPI, syncope Genitourinary: no symptoms reported Musculoskeletal: no symptoms reported Skin: no symptoms reported Past Bkbecjp-Wsmkhk-Gegrvs Hx Patient Social History Type Used: Cigarettes Former Smoker, Quit: Jan 02, 2001 Recent Hopitalizations: No Immunizations Up To Date Date of Pneumonia Vaccine: Jan 01, 2011 Date of Influenza Vaccine: Feb 23, 2012 Seasonal Allergies Seasonal Allergies: No Past Medical History Surgeries: Yes (Macula repair 2009, HIATAL HERNIA) Respiratory: Yes COPD Currently Using CPAP: No Currently Using BIPAP: No Cardiac: No Neurological: No Reproductive Disorders: No Sexually Transmitted Disease: No HIV/AIDS: No Genitourinary: No 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 2.0oz. 72.014373kq; 29.7 BMI Method:Stated General Appearance: No Apparent Distress, WD/WN Eyes: Bilateral Eye Normal Inspection, Bilateral Eye PERRL, Bilateral Eye EOMI HEENT: PERRL/EOMI, TMs Normal Neck: Full Range of Motion, Normal Inspection Respiratory: No Accessory Muscle Use, No Respiratory Distress, Wheezing Cardiovascular: Regular Rate, Rhythm, Normal Peripheral Pulses Gastrointestinal: Non Tender, Soft Extremity: Normal Capillary Refill, Normal Inspection Neurologic/Psychiatric: Alert, Oriented x3 Skin: Normal Color, Warm/Dry Progress/Results/Core Measures Suspected Sepsis SIRS Temperature: Pulse: Respiratory Rate: Laboratory Tests 05/04/18 15:10: White Blood Count 9.0 Blood Pressure / Mean: Laboratory Tests 05/04/18 15:10: Creatinine 1.29, Platelet Count 183, Total Bilirubin 0.4 Results/Orders Lab Results Laboratory Tests Test 05/04/18 15:10 Range/Units White Blood Count 9.0 4.3-11.0 10^3/uL Red Blood Count 4.82 4.35-5.85 10^6/uL Hemoglobin 13.9 11.5-16.0 G/DL Hematocrit 42 35-52 % Mean Corpuscular Volume 88 80-99 FL Mean Corpuscular Hemoglobin 29 25-34 PG Mean Corpuscular Hemoglobin Concent 33 32-36 G/DL Red Cell Distribution Width 15.3 H 10.0-14.5 % Platelet Count 183 130-400 10^3/uL Mean Platelet Volume 10.7 H 7.4-10.4 FL Neutrophils (%) (Auto) 76 H 42-75 % Lymphocytes (%) (Auto) 14 12-44 % Monocytes (%) (Auto) 7 0-12 % Eosinophils (%) (Auto) 2 0-10 % Basophils (%) (Auto) 1 0-10 % Neutrophils # (Auto) 6.8 1.8-7.8 X 10^3 Lymphocytes # (Auto) 1.3 1.0-4.0 X 10^3 Monocytes # (Auto) 0.6 0.0-1.0 X 10^3 Eosinophils # (Auto) 0.2 0.0-0.3 10^3/uL Basophils # (Auto) 0.1 0.0-0.1 10^3/uL Sodium Level 139 135-145 MMOL/L Potassium Level 3.8 3.6-5.0 MMOL/L Chloride Level 107 98-107 MMOL/L Carbon Dioxide Level 20 L 21-32 MMOL/L Anion Gap 12 5-14 MMOL/L Blood Urea Nitrogen 33 H 7-18 MG/DL Creatinine 1.29 0.60-1.30 MG/DL Estimat Glomerular Filtration Rate 40 BUN/Creatinine Ratio 26 Glucose Level 201 H 70-105 MG/DL Calcium Level 9.4 8.5-10.1 MG/DL Corrected Calcium 9.3 8.5-10.1 MG/DL Magnesium Level 2.2 1.8-2.4 MG/DL Total Bilirubin 0.4 0.1-1.0 MG/DL Aspartate Amino Transf (AST/SGOT) 19 5-34 U/L Alanine Aminotransferase (ALT/SGPT) 21 0-55 U/L Alkaline Phosphatase 90 40-136 U/L Total Protein 6.7 6.4-8.2 GM/DL Albumin 4.1 3.2-4.5 GM/DL Thyroid Stimulating Hormone (TSH) 3.05 0.35-4.94 UIU/ML Micro Results Microbiology 05/04/18 Influenza Types A,B Antigen (LISA) - Final, Complete My Orders Orders - FARIHA VELASQUEZ COOK FAST FOOD Cbc With Automated Diff (05/04/18 15:07) Comprehensive Metabolic Panel (05/04/18 15:07) Ua Culture If Indicated (05/04/18 15:07) Ct Head Wo (05/04/18 15:07) Chest 1 View, Ap/Pa Only (05/04/18 15:07) Iv Heplock-Insert (Order) (05/04/18 15:07) Magnesium (05/04/18 15:14) Thyroid Stimulating Hormone (05/04/18 15:14) Albuterol/Ipra Inhalation Soln (Duoneb I (05/04/18 15:15) Svn Small Volume Nebulizer (05/04/18 15:14) Acetaminophen/Codeine Tablet (Tylenol W/ (05/04/18 15:30) Influenza A And B Antigens (05/04/18 15:43) Ns Iv 1000 Ml (Sodium Chloride 0.9%) (05/04/18 16:45) Ceftriaxone For Iv Use (Rocephin For I (05/04/18 16:45) Medications Given in ED Current Medications Medications Dose Ordered Sig/[place]ootie Route Start Time Stop Time Status Last Admin Dose Admin Acetaminophen/ Codeine Phosphate 1 tab ONCE ONCE PO 05/04/18 15:30 05/04/18 15:31 DC 05/04/18 15:24 1 TAB Albuterol/ Ipratropium 3 ml ONCE ONCE INH 05/04/18 15:15 05/04/18 15:16 DC 05/04/18 15:42 3 ML Vital Signs/I&O 05/04/18 05/04/18 15:25 15:42 Temp 96.5 Pulse 78 Resp 20 B/P (MAP) 127/89 (102) Pulse Ox 98 95 O2 Delivery Room Air Capillary Refill : Departure Impression Primary Impression: Bronchitis Additional Impression: Fatigue Qualified Codes: R53.82 - Chronic fatigue, unspecified Disposition: 01 HOME, SELF-CARE Condition: Stable Departure-Patient Inst. Decision time for Depature: 16:35 Referrals: SOLA MICHELLE DO (PCP/Family) Primary Care Physician Patient Instructions: Acute Bronchitis in Adults Add. Discharge Instructions: 1. Medication as directed 2. Return to ER for any concerns 2 Scripts Acetaminophen with Codeine (Tylenol with Codeine #3 Tablet) 1 Each Tablet 1 EACH PO Q6H PRN for COUGH, #10 TAB Prov: FARIHA VELASQUEZ COOK FAST FOOD 05/04/18 Prednisone (Prednisone) 20 Mg Tab 40 MG PO DAILY, #8 TAB Prov: FARIHA VELASQUEZ [employer] 05/04/18 Cefuroxime Axetil (Cefuroxime) 250 Mg Tablet 250 MG PO BID, #10 TAB Prov: FARIHA VELASQUEZ APRN 05/04/18 FARIHA VELASQUEZ APRN May 04, 2018 15:18
[2018-05-04 15:20] LABS: BASOPHILS # (AUTO) 0.1 10^3/uL (0.0-0.1); BASOPHILS % (AUTO) 1 % (0-10); EOSINOPHILS # (AUTO) 0.2 10^3/uL (0.0-0.3); EOSINOPHILS % (AUTO) 2 % (0-10); HEMATOCRIT 42 % (35-52); HEMOGLOBIN 13.9 G/DL (11.5-16.0); LYMPHOCYTES # (AUTO) 1.3 X 10^3 (1.0-4.0); LYMPHOCYTES % (AUTO) 14 % (12-44); MEAN CORPUSCULAR HEMOGLOBIN 29 PG (25-34); MEAN CORPUSCULAR HGB CONC 33 G/DL (32-36); MEAN CORPUSCULAR VOLUME 88 FL (80-99); MEAN PLATELET VOLUME 10.7 FL (7.4-10.4); MONOCYTES # (AUTO) 0.6 X 10^3 (0.0-1.0); MONOCYTES % (AUTO) 7 % (0-12); NEUTROPHILS # (AUTO) 6.8 X 10^3 (1.8-7.8); NEUTROPHILS % (AUTO) 76 % (42-75); PLATELET COUNT 183 10^3/uL (130-400); RED BLOOD COUNT 4.82 10^6/uL (4.35-5.85); RED CELL DISTRIBUTION WIDTH 15.3 % (10.0-14.5)
[2018-05-04] MEDS ORDERED: APAP 300 MG/CODEINE 30 MG (TYLENOL #3) TAB PO ONE (15:30)
[2018-05-04 15:41] LABS: ALBUMIN 4.1 GM/DL (3.2-4.5); BILIRUBIN,TOTAL 0.4 MG/DL (0.1-1.0); CALCIUM 9.4 MG/DL (8.5-10.1); CREATININE SERUM 1.29 MG/DL (0.60-1.30); MAGNESIUM 2.2 MG/DL (1.8-2.4); POTASSIUM 3.8 MMOL/L (3.6-5.0); TOTAL PROTEIN 6.7 GM/DL (6.4-8.2)
--- NOTE | 2018-05-04 16:23 | Diagnostic Imaging Report ---
PROCEDURE: CT head without contrast. TECHNIQUE: Multiple contiguous axial images were obtained through the brain without the use of intravenous contrast. INDICATION: Mental status change, confusion. Neck/back stiffness. COMPARISON: None FINDINGS: There are diffuse atrophic changes with prominence of the ventricles and sulci. There are rather pronounced, scattered areas of decreased attenuation, nonspecific but likely changes of chronic small vessel ischemic disease. There is otherwise normal grimes-white differentiation. No abnormal areas of attenuation to suggest edema from ischemia. There is no midline shift or mass effect. No evidence for acute intracranial hemorrhage or abnormal extra-axial fluid collection. Bony calvarium is intact. Paranasal sinuses are clear. Mastoid air cells also appear clear. IMPRESSION: 1. No CT evidence for acute intracranial abnormality. However, there are rather pronounced, chronic appearing changes of likely small vessel ischemic disease. This does limit assessment for potential foci of edema. If symptoms persist, repeat imaging recommended. Dictated by: Dictated on workstation # [id number]
[2018-05-04] MEDS ORDERED: CEFU250T80 PO (16:37)
[2018-05-04] MEDS ORDERED: PRD20T PO (16:38)
[2018-05-04] MEDS ORDERED: cefTRIAXone FOR IV USE 1,000 MG in NS (IVPB) 50 ML IV ONE (16:45)
[2018-05-04] MEDS ORDERED: NS IV 1000 ML 1,000 ML IV SCH (16:45)
--- NOTE | 2018-05-04 16:47 | Diagnostic Imaging Report ---
INDICATION: Cough, congestion and flu-like symptoms x5 days.. TECHNIQUE: Single view chest 4:34 p.m. CORRELATION STUDY: 05/27/2017 FINDINGS: Limited depth of inspiration. This results in some crowding at the lung bases. Increased density at the lung bases is again demonstrated relatively stable and favors prominent pericardial fat. No definitive consolidating infiltrate. Heart size, mediastinum and vasculature overall unchanged. IMPRESSION: 1. Generally stable chest demonstrates no acute abnormality. Dictated by: Dictated on workstation # [id number]
[2018-05-04] MEDS ORDERED: ACET-789 PO (16:48)
[2018-05-04 17:31] VITALS: BP 132/61
== END 2018-05-04 17:26 | disposition home or self-care (01) ==
LOC: EDUNIT# 14:52 → ER 14:53
DX: J44.9 Chronic obstructive pulmonary disease, unspecified (principal); R53.83 Other fatigue; F41.9 Anxiety disorder, unspecified; Z88.0 Allergy status to penicillin; Z79.51 Long term (current) use of inhaled steroids; Z87.19 Personal history of other diseases of the digestive system; Z98.890 Other specified postprocedural states; Z79.52 Long term (current) use of systemic steroids; Z87.891 Personal history of nicotine dependence
CPT/HCPCS: 36415; 70450; 71045; 80053; 83735; 84443; 85025; 87804; 94640

== ENCOUNTER 2022-11-02 17:00 | Emergency (ER) | payer MEDICARE ==
[~2022-11-02] VITALS: Ht 157 cm; Wt 72.0 kg
[~2022-11-02 17:00] MED LIST changes: +ACET-789 PO; +CEFU250T80 PO; -POTA10CA43 PO; +POTA10CA44 PO
[2022-11-02 17:06] VITALS: BP 148/79
[2022-11-02] MEDS ORDERED: TETANUS,DIPTH,PERTUSS P/F (BOOSTRIX) 0.5 ML VIAL IM ONE (17:45)
--- NOTE | 2022-11-02 17:57 | ED Fall/Injury ---
General Chief Complaint: Laceration Stated Complaint: FALL - HEAD LAC Nursing Triage Note: PT STATES SHE FELL WATERING THE BARKER, CC OF LAC TO LT FOREHEAD WITH HEMATOMA, HIT CONCRETE, DENIES LOC, NO NECK PAIN. NEEDS TETANUS SHOT Source: patient Exam Limitations: no limitations History of Present Illness Date Seen by Provider: Nov 02, 2022 Time Seen by Provider: 17:39 Initial Comments 81-year-old female presents to the ER for a head injury. She states that she was outside watering her barker when she stumbled and fell forward, hitting her head on a step. She also has a small skin tear to her left forearm. She is uncertain of her last tetanus. Denies loss of consciousness. Does not take any blood thinners. Denies dizziness, nausea and vomiting. Allergies and Home Medications Allergies Coded Allergies: Penicillins (Verified Allergy, Unknown, 05/18/07) Patient Home Medication List Home Medication List Reviewed: Yes Acetaminophen with Codeine (Tylenol with Codeine #3 Tablet) 1 Each Tablet, 1 EACH PO Q6H PRN for COUGH Prescribed by: FARIHA VELASQUEZ on 05/04/18 1648 Albuterol Sulfate (Albuterol Sulfate) 2.5 Mg/3 Ml Vial.neb, 2.5 MG IH RTQ4HR Prescribed by: SOLA MICHELLE on 11/26/16 1230 Azithromycin (Zithromax) 250 Mg Tablet, 250 MG PO UD Prescribed by: SOLA MICHELLE on 11/26/16 1232 Cefuroxime Axetil (Cefuroxime) 250 Mg Tablet, 250 MG PO BID Prescribed by: FARIHA VELASQUEZ on 05/04/18 1637 Fluoxetine Hcl (Fluoxetine Hcl) 40 Mg Capsule, 1 EACH PO DAILY, (Reported) Entered as Reported by: SOLE SHETTY on 01/01/14 0923 Potassium Chloride (Potassium Chloride) 10 Meq Capsule.er, 10 MEQ PO BID Prescribed by: SOLA MICHELLE on 11/26/16 1235 Prednisone (Prednisone) 20 Mg Tab, 20 MG PO DAILY Prescribed by: SOLA MICHELLE on 11/26/16 1232 Prednisone (Prednisone) 20 Mg Tab, 40 MG PO DAILY Prescribed by: FARIHA VELASQUEZ on 05/04/18 1638 Raloxifene HCl (Raloxifene HCl) 60 Mg Tablet, (Reported) Entered as Reported by: SHARATH LUCIANO on 11/26/16 0158 Review of Systems Review of Systems Constitutional: see HPI Past Nhvxxsu-Tuokxt-Fgxusa Hx Patient Social History Tobacco Use?: No Substance use?: No Alcohol Use?: No Immunizations Up To Date Third COVID19 Vaccination Date: YES Seasonal Allergies Seasonal Allergies: No Past Medical History Surgery/Hospitalization HX: HERNIA, COPD Surgeries: Yes (Macula repair 2010, HIATAL HERNIA) Respiratory: Yes COPD Currently Using CPAP: No Currently Using BIPAP: No Cardiac: No Neurological: No Reproductive Disorders: No Sexually Transmitted Disease: No HIV/AIDS: No Genitourinary: No Gastrointestinal: Yes (HAS FREQ HEART BURN) Musculoskeletal: No Endocrine: No HEENT: No Cancer: No Psychosocial: Yes Anxiety Integumentary: Yes (TICK FEVER) Blood Disorders: No Adverse Reaction/Blood Tranf: No Family Medical History No Pertinent Family Hx Physical Exam Vital Signs Vital Signs - First Documented 11/02/22 17:06 Temp 37.2 Pulse 73 Resp 20 B/P (MAP) 148/79 (102) Pulse Ox 96 O2 Delivery Room Air Capillary Refill : Less Than 3 Seconds Height, Weight, BMI Height: 5'2.00" Weight: 165lbs. 0oz. 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, alert, normal mood/affect Skin: normal color, warm/dry, other (Large hematoma above left eye, laceration noted) Procedures/Interventions Wound Location: Face Other Wound Location Above left eye Wound Length (cm): 1 Wound's Depth, Shape: linear Wound Explored: clean Anesthesia: Lidocaine w/ Epi Wound Debrided: minimal Suture: Prolene Suture Size: 4-0 Number of Sutures: 2 Progress/Results/Core Measures Results/Orders My Orders Orders - KAYLENE BENITO APRN Ct Head/Cervical Spine Wo (11/02/22 17:39) Dipht,Pertuss(Acell),Tet Adult (Boostrix (11/02/22 17:45) Lidocaine/Epi 2% 1:100,000 (Xylocaine/Ep (11/02/22 18:45) Lidocaine/Epi 1% 1:100,000 (Xylocaine /E (11/02/22 18:43) Medications Given in ED Vital Signs/I&O 11/02/22 17:06 Temp 37.2 Pulse 73 Resp 20 B/P (MAP) 148/79 (102) Pulse Ox 96 O2 Delivery Room Air Blood Pressure Mean: 102 Progress Progress Note : Progress Note Patient seen and evaluated, resting comfortably in bed, no acute distress. Based on exam and symptoms, CT of head and neck ordered. Tetanus ordered. 1914 laceration repaired, see procedure note. CT reviewed. No acute intracranial abnormality, no acute abnormality of the cervical spine. Probable findings of chronic small vessel ischemic disease as well as multilevel degenerative changes of the cervical spine. Results discussed with patient. Discharge instructions and return precautions provided. Diagnostic Imaging Diagonstic Imaging: CT Plain Films/CT/US/NM/MRI: c-spine, head Comments [facility], [place] NAME: XIN RUIZ [facility] REC#: [id number] PT STATUS: REG ER : 1940 PHYSICIAN: KAYLENE BENITO APRN ADMIT DATE: 11/02/22/ER Signed Date of Exam:11/02/22 CT HEAD/CERVICAL SPINE WO Procedure: CT head and CT cervical spine without contrast. Technique: Multiple contiguous axial images were obtained through the brain and cervical spine without the use of intravenous contrast. Sagittal and coronal reformations through the cervical spine were then performed. Auto Exposure Controls were utilized during the CT exam to meet ALARA standards for radiation dose reduction. Date: November 02, 2022. Indication: Female, head and neck pain. Injury. Comparison: CT head May 04, 2018. Findings: Sizable hematoma superior to the left orbit in the subcutaneous tissues and adjacent scalp. There is no identified skull fracture. The visualized portions of the paranasal sinuses, mastoid air cells, and middle ears are well aerated. The ventricles and additional CSF spaces are within normal limits in size and configuration for patient age. There is no identified abnormal extra-axial fluid collection. There is no evidence of acute intracranial hemorrhage. There is no mass effect or midline shift. There are probable bilateral moderate findings of chronic small vessel ischemic disease. There is no identified facet joint subluxation or dislocation. There are facet degenerative changes of the cervical spine. There is severe disc height loss at C3-C4 and moderate disc height loss at C4-C5 and C5-C6. There do appear to be posterior disc osteophyte complexes at these levels. There is chondrocalcinosis. There is arthritis at the C1-C2 articulation. There is no asymmetric widening of the cervical disc spaces. There is no prominent prevertebral soft tissue swelling. There is mild grade 1 anterolisthesis of C2 on C3 and minimal grade 1 retrolisthesis of C3 on C4. There is no identified acute fracture of the cervical spine. The visualized portions of the lung apices are clear. Impression: 1. Sizable hematoma of the subcutaneous tissues superior to the left orbit and adjacent scalp. 2. No identified acute intracranial abnormality. 3. No identified acute abnormality of the cervical spine. 4. Probable findings of chronic small vessel ischemic disease. 5. Multilevel degenerative changes of the cervical spine. Dictated by: Dictated on workstation # [id number] Dict: 11/02/22 1801 Trans: 11/02/22 1820 [facility] [id number] Interpreted by: SHEKHAR ADAMS MD Electronically signed by: SHEKHAR ADAMS MD 11/02/22 182 Departure Impression Primary Impression: Head injury Additional Impression: Laceration Disposition: 01 HOME, SELF-CARE Condition: Stable Departure-Patient Inst. Decision time for Depature: 19:15 Referrals: SOLA MICHELLE DO (PCP/Family) Primary Care Physician Patient Instructions: Laceration Repair With Stitches ED, Head Injury Observation (DC) Add. Discharge Instructions: Return in 5 days to have the sutures removed. You may take up to 1000 mg of Tylenol every 8 hours as needed for pain. Return for abnormal behavior, difficulty with normal activities, vision changes, numbness or weakness, or signs of infection including redness, worsening swelling, or discolored odorous drainage, or any other new, concerning, or worsening symptoms. All discharge instructions reviewed with patient and/or family. Voiced understanding. Work/School Note: Work Release Form Date Seen in the Emergency Department: Nov 02, 2022 Return to Work: Nov 04, 2022 Restrictions: No Restrictions KAYLENE BENITO APRN Nov 02, 2022 17:57
--- NOTE | 2022-11-02 18:10 | Diagnostic Imaging Report ---
Procedure: CT head and CT cervical spine without contrast. Technique: Multiple contiguous axial images were obtained through the brain and cervical spine without the use of intravenous contrast. Sagittal and coronal reformations through the cervical spine were then performed. Auto Exposure Controls were utilized during the CT exam to meet ALARA standards for radiation dose reduction. Date: November 02, 2022. Indication: Female, head and neck pain. Injury. Comparison: CT head May 04, 2018. Findings: Sizable hematoma superior to the left orbit in the subcutaneous tissues and adjacent scalp. There is no identified skull fracture. The visualized portions of the paranasal sinuses, mastoid air cells, and middle ears are well aerated. The ventricles and additional CSF spaces are within normal limits in size and configuration for patient age. There is no identified abnormal extra-axial fluid collection. There is no evidence of acute intracranial hemorrhage. There is no mass effect or midline shift. There are probable bilateral moderate findings of chronic small vessel ischemic disease. There is no identified facet joint subluxation or dislocation. There are facet degenerative changes of the cervical spine. There is severe disc height loss at C3-C4 and moderate disc height loss at C4-C5 and C5-C6. There do appear to be posterior disc osteophyte complexes at these levels. There is chondrocalcinosis. There is arthritis at the C1-C2 articulation. There is no asymmetric widening of the cervical disc spaces. There is no prominent prevertebral soft tissue swelling. There is mild grade 1 anterolisthesis of C2 on C3 and minimal grade 1 retrolisthesis of C3 on C4. There is no identified acute fracture of the cervical spine. The visualized portions of the lung apices are clear. Impression: 1. Sizable hematoma of the subcutaneous tissues superior to the left orbit and adjacent scalp. 2. No identified acute intracranial abnormality. 3. No identified acute abnormality of the cervical spine. 4. Probable findings of chronic small vessel ischemic disease. 5. Multilevel degenerative changes of the cervical spine. Dictated by: Dictated on workstation # [id number]
[2022-11-02] MEDS ORDERED: LIDOCAINE/EPI 1%-1:100,000 (XYLOCAINE) 20ML ONE (18:43)
[2022-11-02] MEDS ORDERED: LIDOCAINE/EPI 2% 1:100,00 (XYLOCAINE) 20 ML VIAL INJ ONE (18:45)
== END 2022-11-02 19:22 | disposition home or self-care (01) ==
LOC: EDUNIT# 17:00 → ER 17:01
DX: S09.90XA Unspecified injury of head, initial encounter (principal); S01.81XA Laceration without foreign body of other part of head, initial encounter; Z23 Encounter for immunization; W01.198A Fall on same level from slipping, tripping and stumbling with subsequent striking against other object, initial encounter; Y93.89 Activity, other specified
CPT/HCPCS: 70450; 72125; 90715

== ENCOUNTER 2022-11-08 14:40 | Emergency (ER) | payer MEDICARE ==
[~2022-11-08 14:40] MED LIST changes: -POTA10CA44 PO; +POTA10CA84 PO
[2022-11-08 14:45] VITALS: BP 131/80
== END 2022-11-08 15:02 | disposition home or self-care (01) ==
LOC: EDUNIT# 14:40 → ER 14:43
DX: Z48.02 Encounter for removal of sutures (principal)